=== PATIENT | male | born 1995 | race Caucasian/White ===

== ENCOUNTER 2024-07-18 11:37 | Emergency (ER) | payer OTHER, SELFPAY ==
[2024-07-18 11:38] VITALS: BP 221/107; PULSE 118; RESP 18; TEMP 36.7; O2SAT 98
[2024-07-18 11:40] VITALS: BMI 52.7
--- NOTE | 2024-07-18 11:56 | EDS_ITS ---
HPI <VENUS Ly - Last Filed: 07/18/24 14:20> History of Present Illness Chief Complaint: Abd Pain Narrative Narrative: 28-year-old male with PMH of HTN, GERD, DM2 who states last night he developed nausea, epigastric pain and diarrhea. He took his Prilosec before bed thinking it may have been GERD but it did not help. He did not take his other nighttime meds (blood pressure and metformin). He took Zofran ODT this morning and his nausea has resolved but he still has the upper abdominal pain and frequent nonbloody diarrhea. He was concerned because his fingerstick glucose was over 200. He denies smoking or drinking alcohol. No abdominal surgical history. PFSH <VENUS Ly - Last Filed: 07/18/24 14:20> [facility] Medical History (Updated 07/18/24 @ 12:58 by VENUS Ly) HTN (hypertension) Diabetes Lumbar strain Home Medications ?Medication ?Instructions ?Recorded ?Last Taken ?Type amlodipine 5 mg tablet (Norvasc) 5 mg PO QDAY 04/29/24 Unknown History cyclobenzaprine 10 mg tablet 10 mg PO HS PRN muscle sp asm #14 04/29/24 Unknown Rx tabs fexofenadine 60 mg capsule 60 mg PO BID 04/29/24 Unkno wn History folic acid 1 mg tablet 1 mg PO QDAY 04/29/24 Unknow n History ibuprofen 600 mg tablet 600 mg PO Q6H #40 tabs 04/29 Unknown Rx levothyroxine 50 mcg capsule 50 mcg PO QDAY 04/29/24 U nknown History lisinopril 10 mg tablet 10 mg PO QDAY 04/29/24 Unkno wn History mecobalamin (vitamin B12) 500 mcg mcg PO 04/29/24 Unkn own History chewable tablet metformin 500 mg tablet 500 mg PO QDAY 04/29/24 Unkn own History omeprazole magnesium 20 mg 20 mg PO QDAY 04/29/24 Unkn own History tablet,delayed release (Prilosec OTC) ondansetron 4 mg disintegrating 4 mg PO Q8H PRN PRN Na usea #12 tabs 07/18/24 Unknown Rx tablet Allergy/AdvReac Type Severity Reaction Status Date / Time carbinoxamine (From [facility]) Allergy SOB Verified 07/18/24 11:38 chlorpheniramine (From Allergy SOB Verified 07/18/24 11:38 Cardec (phenylephrin-chlorphn)) codeine Allergy irritabilit Verified 07/18/24 11:38 y phenylephrine (From [facility]ec Allergy SOB Verified 07/18/24 11:38 (phenylephrin-chlorphn)) [facility] Allergy SOB Verified 07/18/24 11:38 Seasonal Allergies: Uncoded Allergy Other Verified 07/18/24 11:38 Social History Smoking Status: Never smoker ROS <VENUS Ly - Last Filed: 07/18/24 14:20> ROS ED ROS Narrative Constitutional: Negative for fever, chills, malaise. CVS: Negative for chest pain. Respiratory: Negative for shortness of breath. GI: Negative for abdominal pain, nausea, diarrhea. Negative for vomiting, melena, hematochezia. : Negative for dysuria, hematuria. EXAM <VENUS Ly - Last Filed: 07/18/24 14:20> Physical Exam Narrative Exam Narrative: CONST: Patient sitting in no acute distress. EYES: Normal inspection. NECK: Normal inspection. RESP: No respiratory distress, CTAB. CVS: Regular rate and rhythm, no murmur, no gallop. ABD: Soft obese abdomen with minimal midline epigastric tenderness, no guarding or rebound, nondistended. SKIN: Color normal, no rash, warm, dry, intact. EXTREMITIES: Normal appearance, no pedal edema. NEURO: Alert and answering questions appropriately. PSYCH: Normal affect. Const Vital Signs: 07/18/24 11:38 07/18/24 13:37 Temperature 98.1 F Temperature Source Oral Pulse Rate 118 H 99 Respiratory Rate 18 18 Blood Pressure 221/107 H 150/92 H Blood Pressure Mean 145 111 Pulse Ox 98 97 Oxygen Delivery Method Room Air <Dr. Steven Maradiaga DO - Last Filed: 07/18/24 13:08> Physical Exam Const Vital Signs: 07/18/24 11:38 07/18/24 13:37 Temperature 98.1 F Temperature Source Oral Pulse Rate 118 H 99 Respiratory Rate 18 18 Blood Pressure 221/107 H 150/92 H Blood Pressure Mean 145 111 Pulse Ox 98 97 Oxygen Delivery Method Room Air MDM <VENUS Ly - Last Filed: 07/18/24 14:20> [facility] Narrative Medical decision making narrative: Differential includes but not limited to viral illness, GERD, PUD, pancreatitis, DKA 28-year-old male signed nausea, epigastric pain, and diarrhea since last night. He appears well and nontoxic. BP 221/107, HR 118, otherwise normal vital signs. He takes his medication at night and did not take lisinopril or amlodipine last evening. Overall he is a benign exam with minimal epigastric tenderness. Labs show WBC of 12.4. Normal electrolytes. Glucose 174, CO2 20.9, anion gap 15. There is mild transaminitis with normal lipase. He took Zofran at home but nausea has resolved. I ordered IV fluids, Toradol, Pepcid and lisinopril and amlodipine. Patient feels better and his vital signs have improved. I prescribed Zofran and discussed symptomatic management at home for suspected viral enteritis. I discussed return precautions. He was discharged in stable condition. Lab Data Labs: Laboratory Results - last 24 hr 07/18/24 11:52 WBC 12.4 H RBC 5.63 Hgb 15.7 Hct 47.6 MCV 84.5 MCH 27.9 MCHC 33.0 RDW Std Deviation 40.2 RDW Coeff of Karl 13.1 Plt Count 385 MPV 9.2 Immature Gran % (Auto) 0.400 Neut % (Auto) 81.3 H Lymph % (Auto) 12.8 L [place] % (Auto) 4.5 Eos % (Auto) 0.6 Baso % (Auto) 0.4 Absolute Neuts (auto) 10.1 H Absolute Lymphs (auto) 1.59 Nucleated RBC % 0 Sodium 138 Potassium 3.9 Chloride 102 Carbon Dioxide 20.9 L Anion Gap 15 BUN 12 Creatinine 0.84 Est GFR (MDRD) Non-Af 122 BUN/Creatinine Ratio 13.7 Glucose 174 H Calcium 9.5 Total Bilirubin 0.56 AST 71 H ALT 119 H Alkaline Phosphatase 85 Total Protein 8.3 Albumin 4.6 Globulin 3.7 Albumin/Globulin Ratio 1.3 Lipase 28 <Dr. Steven Maradiaga DO - Last Filed: 07/18/24 13:08> [facility] History & Record Review Discussion w/independent historian: Patient Lab Data Attestation: I reviewed the patient's lab results. Labs: Laboratory Results - last 24 hr 07/18/24 11:52 WBC 12.4 H RBC 5.63 Hgb 15.7 Hct 47.6 MCV 84.5 MCH 27.9 MCHC 33.0 RDW Std Deviation 40.2 RDW Coeff of Karl 13.1 Plt Count 385 MPV 9.2 Immature Gran % (Auto) 0.400 Neut % (Auto) 81.3 H Lymph % (Auto) 12.8 L [place] % (Auto) 4.5 Eos % (Auto) 0.6 Baso % (Auto) 0.4 Absolute Neuts (auto) 10.1 H Absolute Lymphs (auto) 1.59 Nucleated RBC % 0 Sodium 138 Potassium 3.9 Chloride 102 Carbon Dioxide 20.9 L Anion Gap 15 BUN 12 Creatinine 0.84 Est GFR (MDRD) Non-Af 122 BUN/Creatinine Ratio 13.7 Glucose 174 H Calcium 9.5 Total Bilirubin 0.56 AST 71 H ALT 119 H Alkaline Phosphatase 85 Total Protein 8.3 Albumin 4.6 Globulin 3.7 Albumin/Globulin Ratio 1.3 Lipase 28 Treatment and Re-Evaluation :: I have personally performed a face to face assessment of the patient and have reviewed the STEVENSON Note. I performed a substantive portion of the visit including all aspects of the following. My acevedo findings include: History is 28-year-old male presenting to the emergency room with vomiting diarrhea and elevated blood sugar. Patient is a diabetic. He took Zofran this morning which has helped his nausea. He notes foul-smelling diarrhea. He notes that he is due for his blood pressure medication. Notes his blood sugar was 192 and then 202 this morning. Exam is afebrile slightly tachycardic and hypertensive. Abdominal exam shows normal active bowel sounds. Nonsurgical abdomen. Mild tenderness to palpation particularly in the epigastrium left upper quadrant. Medical Decison Making basic blood work was obtained. Patient received IV fluids as well as his blood pressure medication and Pepcid. White count is nonspecifically elevated 12.4. Normal lipase. ALT of 119 AST of 71 normal bilirubin. Glucose 174. I believe the patient can be discharged home. Likely has a viral gastroenteritis. Discharge Plan Triage Chief Complaint: Abd Pain ED Midlevel Provider: Cary Naik ED Provider: Steven Maradiaga Dx/Rx/DC Orders Clinical Impression: Diarrhea, Acute viral syndrome, Abdominal pain, epigastric Instructions: ED Diarrhea, Unknown Cause, ED Diet Vomiting Diarrhea Prescriptions: New ondansetron 4 mg tablet,disintegrating 4 mg PO Q8H PRN PRN (Reason: Nausea) Qty: 12 0RF No Action amlodipine [Norvasc] 5 mg tablet 5 mg PO QDAY Rx Instructions: Unsure of dose lisinopril 10 mg tablet 10 mg PO QDAY Rx Instructions: Unsure of dose fexofenadine 60 mg capsule 60 mg PO BID Rx Instructions: Unsure of dose omeprazole magnesium [Prilosec OTC] 20 mg tablet,delayed release (DR/EC) 20 mg PO QDAY Rx Instructions: Unsure of dose metformin 500 mg tablet 500 mg PO QDAY Rx Instructions: Unsure of dose levothyroxine 50 mcg capsule 50 mcg PO QDAY Rx Instructions: Unsure of dose folic acid 1 mg tablet 1 mg PO QDAY Rx Instructions: Unsure of dose mecobalamin (vitamin B12) 500 mcg tablet,chewable PO Rx Instructions: Unsure of dose ibuprofen 600 mg tablet 600 mg PO Q6H Qty: 40 0RF cyclobenzaprine 10 mg tablet 10 mg PO HS PRN (Reason: muscle spasm) Qty: 14 0RF Stand Alone Forms: ED Work / School Excuse Primary Care Provider: Analilia Gongora Referrals: Analilia Gongora, DO [Primary Care Provider] - Activity Restrictions/Additional Instructions: Plenty clear fluids and Gatorade etc. Use Zofran as needed for nausea and vomiting. If your symptoms worsen and you cannot keep down your medications or you develop worsening abdominal pain or blood in your diarrhea please come back to the emergency room for reevaluation. Print Language: Welsh Disposition Disposition: Home, Self Care Discharge Date/Time: 07/18/24 14:05
[2024-07-18 12:11] LABS: Absolute Lymphocyte Count 1.59 X10^3/uL (0.83-4.51); Absolute Neutrophil Count 10.1 X10^3/uL (2.0-7.7); Basophil# 0.05 X10^3/uL; Basophil% 0.4 % (0-1); Eosinophil# 0.08 X10^3/uL; Eosinophils% 0.6 % (0-5); Hematocrit 47.6 % (40-54); Hemoglobin 15.7 g/dL (13.0-16.5); Lymphocyte # 1.59 X10^3/ul (0.83-4.51); Lymphocyte % 12.8 % (19-41); Mean Corpuscular Hgb 27.9 pg (27.0-32.0); Mean Corpuscular Volume 84.5 fL (80-94); Mean Platelet Vol. 9.2 fl (6.2-12.0); Monocyte# 0.56 X10^3/uL; Monocyte% 4.5 % (0-10); NRBC Flagged by Analyzer 0 % (0-5); Neutrophil # 10.05 X10^3/uL (2.7-7.7); Neutrophil % 81.3 % (47-70); Platelet Count 385 K/mm3 (150-450); RBC Distribution Width CV 13.1 % (11.6-14.6); RBC Distribution Width SD 40.2 fl (35.1-43.9); Red Blood Count 5.63 M/mm3 (4.6-6.2); White Blood Count 12.4 K/mm3 (4.4-11.0)
[2024-07-18 12:33] LABS: ALB/GLOB Ratio 1.3 RATIO (0.9-2.4); AST(SGOT) 71 U/L (<=37); Alanine Aminotransfer ALT/SGPT 119 U/L (<=46); Albumin, Serum 4.6 g/dL (3.5-5.0); Alkaline Phosphatase 85 U/L (40-129); Anion Gap 15 (5-15); BUN 12 mg/dL (4-19); BUN/Creat Ratio 13.7 RATIO (10-20); Calcium,Total 9.5 mg/dL (7.6-11.0); Carbon Dioxide 20.9 mmol/L (21.0-32.0); Chloride 102 mmol/L (98-108); Creatinine, Serum 0.84 mg/dL (0.70-1.20); EST Glomerular Filtration Rate 122 (>60); Globulin 3.7 g/dL (2.2-4.2); Glucose 174 mg/dL (70-99); Lipase 28 U/L (13-75); Potassium 3.9 mmol/L (3.3-5.1); Protein, Total 8.3 g/dL (5.9-8.4); Sodium Level 138 mmol/L (133-145); Total Bilirubin 0.56 mg/dL (0.00-1.30)
[2024-07-18] MEDS: Lisinopril 20 MG Tablet PO (12:35)
[2024-07-18] MEDS: Ketorolac 15 MG/ML Vial IV (12:35)
[2024-07-18] MEDS: Famotidine 200 MG/20 ML MDV 20 MG in 0.9% Normal Saline (Pres. free 8 ML 300 MG IV (12:35)
[2024-07-18] MEDS: amLODIPine 10 MG Tablet PO (12:35)
[2024-07-18] MEDS: 0.9% Normal Saline (1000mL) 1,000 ML 999 ML IV (12:35)
[2024-07-18 13:37] VITALS: BP 150/92; PULSE 99; RESP 18; O2SAT 97
== END 2024-07-18 14:05 | disposition home or self-care (01) ==
PROVIDERS: Physician Assistant; Emergency Provider Emergency Medicine; PCP Family Medicine; Visit Provider Emergency Medicine
DX: R19.7 Diarrhea, unspecified (principal); E11.9 Type 2 diabetes mellitus without complications; B34.9 Viral infection, unspecified; I10 Essential (primary) hypertension; R10.13 Epigastric pain; K21.9 Gastro-esophageal reflux disease without esophagitis
CPT/HCPCS: 96361; 96374; 99283

== ENCOUNTER 2024-07-22 10:41 | Emergency (ER) | payer OTHER, SELFPAY ==
[2024-07-22 10:42] VITALS: BP 181/97; PULSE 108; RESP 18; TEMP 36.3; O2SAT 100; BMI 52.6
--- NOTE | 2024-07-22 11:18 | EX.ED.DYSGE1 ---
HPI <CLAUDIA Alva - Last Filed: 07/22/24 13:34> History of Present Illness Chief Complaint: Complaint Narrative Narrative: Patient is a 28-year-old male with history obesity, hypertension hyperlipidemia, diabetes who presents the emerged part for blood in urine. Patient was seen here 4 to 5 days ago for epigastric pain, nausea vomiting diarrhea. Patient states that the symptoms have improved. However he states that when he is urinating, he is dribbling blood afterward. He does have history of UTIs. Patient is not concerned for any STI, his last sexual encounter was greater than 5 months ago. Patient denies any back pain, fever or chills. <Dr. Steven Maradiaga DO - Last Filed: 07/22/24 13:39> Narrative Narrative: Patient is a 28-year-old male with history obesity, hypertension hyperlipidemia, diabetes who presents to the emergency department for blood in urine. Patient was seen here 4 to 5 days ago for epigastric pain, nausea vomiting diarrhea. Patient states that the symptoms have improved. However he states that when he is urinating, he is dribbling blood afterward. He does have history of UTIs. Patient is not concerned for any STI, his last sexual encounter was greater than 5 months ago. Patient denies any back pain, fever or chills. PFSH <CLAUDIA Alva - Last Filed: 07/22/24 13:34> [facility] Medical History (Updated 07/22/24 @ 13:33 by CLAUDIA Alva) HTN (hypertension) Diabetes Lumbar strain Home Medications ?Medication ?Instructions ?Recorded ?Last Taken ?Type amlodipine 5 mg tablet (Norvasc) 5 mg PO QDAY 04/29/24 Unknown History cyclobenzaprine 10 mg tablet 10 mg PO HS PRN muscle spasm #14 04/29/24 Unknown Rx tabs fexofenadine 60 mg capsule 60 mg PO BID 04/29/24 Unknown History folic acid 1 mg tablet 1 mg PO QDAY 04/29/24 Unknown History ibuprofen 600 mg tablet 600 mg PO Q6H #40 tabs 04/29/24 Unknown Rx levothyroxine 50 mcg capsule 50 mcg PO QDAY 04/29/24 Unknown History lisinopril 10 mg tablet 10 mg PO QDAY 04/29/24 Unknown History mecobalamin (vitamin B12) 500 mcg mcg PO 04/29/24 Unknown History chewable tablet metformin 500 mg tablet 500 mg PO QDAY 04/29/24 Unknown History omeprazole magnesium 20 mg 20 mg PO QDAY 04/29/24 Unknown History tablet,delayed release (Prilosec OTC) ondansetron 4 mg disintegrating 4 mg PO Q8H PRN PRN Nausea #12 tabs 07/18/24 Unknown Rx tablet cefdinir 300 mg capsule 300 mg PO BID #14 caps 07/22/24 Unknown Rx Allergy/AdvReac Type Severity Reaction Status Date / Time carbinoxamine (From [facility]) Allergy SOB Verified 07/22/24 10:43 chlorpheniramine (From Allergy SOB Verified 07/22/24 10:43 Cardec (phenylephrin-chlorphn)) codeine Allergy irritabilit Verified 07/22/24 10:43 y phenylephrine (From [facility] Allergy SOB Verified 07/22/24 10:43 (phenylephrin-chlorphn)) pseudoephedrine (From [facility]) Allergy SOB Verified 07/22/24 10:43 Seasonal Allergies: Uncoded Allergy Other Verified 07/22/24 10:43 Social History Smoking Status: Never smoker ROS <CLAUDIA Alva - Last Filed: 07/22/24 13:34> ROS ED ROS Narrative Constitutional: Negative for fever, chills, weight loss, weakness Eyes: Negative for vision loss, vision change, double vision ENT: Negative for any sore throat, ear pain, congestion Cardiovascular: Negative for any chest pain, tightness, palpitations Respiratory: Negative for any cough, sputum production, hemoptysis, dyspnea, dyspnea on exertion, orthopnea Gastrointestinal: Negative for any abdominal pain, nausea, vomiting, diarrhea, constipation, blood in stool, blood in vomit : Negative for any urinary frequency, dysuria, retention. Positive for blood in urine Muscle skeletal: Negative for any neck pain, back pain Neurological: Negative for any headache, syncope, dizziness Skin: Negative for any rashes, itching, abrasions, lacerations Psychiatric: Negative for any depression, anxiety, stress, suicidal ideation, homicidal ideation Hematologic: Negative for any excessive bruising, easy bleeding EXAM <CLAUDIA Alva - Last Filed: 07/22/24 13:34> Physical Exam Narrative Exam Narrative: Vital signs reviewed. HEET: Head normocephalic atraumatic, TMs clear bilaterally. Posterior pharynx is clear, moist mucous membranes. Nares clear bilaterally. Neck: Supple with no lymphadenopathy or tenderness. No signs of meningismus. Cardiac: Regular rate and rhythm no murmurs gallops or rubs, equal peripheral pulses bilaterally. Respiratory: Lungs clear to auscultation bilaterally. No chest tenderness. Abdomen: Soft, nontender, nondistended. No abdominal bruit or pulsatile masses. No hepatosplenomegaly Extremities: No peripheral edema, no signs of gross trauma or deformity. Active full range of motion of all extremities. Neuro: Cranial nerves II through XII intact, no focal neurological deficits. Skin: Clean dry and intact with no rash, purpura, petechiae, vesicles or pustules. Backs/flank: No CVA tenderness, no midline spinal tenderness, no deformity. Psych: Normal mood and affect. No SI, HI or acute psychosis. Const Vital Signs: 07/22/24 10:42 07/22/24 13:08 Temperature 97.4 F L Temperature Source Oral Pulse Rate 108 H 90 Respiratory Rate 18 18 Blood Pressure 181/97 H 157/98 H Blood Pressure Mean 125 117 Pulse Ox 100 98 Oxygen Delivery Method Room Air Room Air Positive well nourished, well developed and obese General Appearance ED: well developed Nutritional Appearance: obese <Dr. Steven Maradiaga DO - Last Filed: 07/22/24 13:39> Physical Exam Const Vital Signs: 07/22/24 10:42 07/22/24 13:08 Temperature 97.4 F L Temperature Source Oral Pulse Rate 108 H 90 Respiratory Rate 18 18 Blood Pressure 181/97 H 157/98 H Blood Pressure Mean 125 117 Pulse Ox 100 98 Oxygen Delivery Method Room Air Room Air MDM <CLAUDIA Alva - Last Filed: 07/22/24 13:34> [facility] Lab Data Labs: Laboratory Results - last 24 hr 07/22/24 11:38 WBC 6.6 RBC 5.43 Hgb 15.0 Hct 45.1 MCV 83.1 MCH 27.6 MCHC 33.3 RDW Std Deviation 39.1 RDW Coeff of Karl 13.0 Plt Count 275 MPV 8.9 Immature Gran % (Auto) 0.300 Neut % (Auto) 59.2 Lymph % (Auto) 31.2 [place] % (Auto) 7.6 Eos % (Auto) 1.1 Baso % (Auto) 0.6 Absolute Neuts (auto) 3.9 Absolute Lymphs (auto) 2.05 Nucleated RBC % 0 Sodium 140 Potassium 3.3 Chloride 102 Carbon Dioxide 22.5 Anion Gap 15 BUN 7 Creatinine 0.71 Estim Creat Clear Calc 249.00 Est GFR (MDRD) Non-Af 128 BUN/Creatinine Ratio 10.2 Glucose 145 H Calcium 9.0 Total Bilirubin 0.88 AST 106 H ALT 154 H Alkaline Phosphatase 80 Total Protein 8.0 Albumin 4.2 Globulin 3.9 Albumin/Globulin Ratio 1.1 Urine Color Yellow Urine Clarity Clear Urine pH 6.0 Ur Specific [place] 1.025 Urine Protein 30 H Urine Glucose (UA) Normal Urine Ketones 50 H Urine Occult Blood 250 H Urine Nitrite Negative Urine Bilirubin Negative Urine Urobilinogen Normal Ur Leukocyte Esterase 100 H Urine RBC 10-25 SEEN Urine WBC 0-5 SEEN Ur Squamous Epith Cells 0-5 SEEN Urine Bacteria 1+ Urine Mucus 1+ Radiography Diagnostic Testing: Clinical Impression(s) from Imaging Studies Abdomen/Pelvis CT 07/22/24 12:27 IMPRESSION: Diffuse fatty infiltration of the liver. Borderline splenomegaly. Reading Location: [place] [address] Treatment and Re-Evaluation :: Differential diagnosis includes however is not limited to: Obstructing uropathy, UTI, bladder abscess, bladder mass, cystitis, STI, dehydration Patient appears generally well, vital signs are stable, patient is nontoxic-appearing. Presenting to the emergency department complaints of blood in urine. Patient will receive basic laboratory values, urinalysis. Patient appears to be in no obvious distress. IV fluids given. Patient CBC was unremarkable, chemistries were unremarkable, AST 106 with an ALT of 154, slightly elevated. Patient CT scan shows a fatty liver as well as borderline splenomegaly. This could be related to the patient's body habitus, urinalysis showed 1+ bacteria 0-5 white blood cells, 10-25 red blood cells, 100 leukocytes this was sent for culture. Patient has no evidence of any obstructive or abscess pathology. Patient will follow-up outpatient. Placed on cefdinir twice a day for 7 days. Instructed return for any worsening symptoms. <Dr. Steven Maradiaga, DO - Last Filed: 07/22/24 13:39> MDM History & Record Review Discussion w/independent historian: Patient Lab Data Attestation: I reviewed the patient's lab results. Labs: Laboratory Results - last 24 hr 07/22/24 11:38 WBC 6.6 RBC 5.43 Hgb 15.0 Hct 45.1 MCV 83.1 MCH 27.6 MCHC 33.3 RDW Std Deviation 39.1 RDW Coeff of Karl 13.0 Plt Count 275 MPV 8.9 Immature Gran % (Auto) 0.300 Neut % (Auto) 59.2 Lymph % (Auto) 31.2 [place] % (Auto) 7.6 Eos % (Auto) 1.1 Baso % (Auto) 0.6 Absolute Neuts (auto) 3.9 Absolute Lymphs (auto) 2.05 Nucleated RBC % 0 Sodium 140 Potassium 3.3 Chloride 102 Carbon Dioxide 22.5 Anion Gap 15 BUN 7 Creatinine 0.71 Estim Creat Clear Calc 249.00 Est GFR (MDRD) Non-Af 128 BUN/Creatinine Ratio 10.2 Glucose 145 H Calcium 9.0 Total Bilirubin 0.88 AST 106 H ALT 154 H Alkaline Phosphatase 80 Total Protein 8.0 Albumin 4.2 Globulin 3.9 Albumin/Globulin Ratio 1.1 Urine Color Yellow Urine Clarity Clear Urine pH 6.0 Ur Specific [place] 1.025 Urine Protein 30 H Urine Glucose (UA) Normal Urine Ketones 50 H Urine Occult Blood 250 H Urine Nitrite Negative Urine Bilirubin Negative Urine Urobilinogen Normal Ur Leukocyte Esterase 100 H Urine RBC 10-25 SEEN Urine WBC 0-5 SEEN Ur Squamous Epith Cells 0-5 SEEN Urine Bacteria 1+ Urine Mucus 1+ Radiography Diagnostic Testing: Clinical Impression(s) from Imaging Studies Abdomen/Pelvis CT 07/22/24 12:27 IMPRESSION: Diffuse fatty infiltration of the liver. Borderline splenomegaly. Reading Location: [place] [address] Treatment and Re-Evaluation :: Differential diagnosis includes however is not limited to: Obstructing uropathy, UTI, bladder abscess, bladder mass, cystitis, STI, dehydration Patient appears generally well, vital signs are stable, patient is nontoxic-appearing. Presenting to the emergency department complaints of blood in urine. Patient will receive basic laboratory values, urinalysis. Patient appears to be in no obvious distress. IV fluids given. Patient CBC was unremarkable, chemistries were unremarkable, AST 106 with an ALT of 154, slightly elevated. Patient CT scan shows a fatty liver as well as borderline splenomegaly. This could be related to the patient's body habitus, urinalysis showed 1+ bacteria 0-5 white blood cells, 10-25 red blood cells, 100 leukocytes this was sent for culture. Patient has no evidence of any obstructive or abscess pathology. Patient will follow-up outpatient. Placed on cefdinir twice a day for 7 days. Instructed return for any worsening symptoms. I have personally performed a face to face assessment of the patient and have reviewed the STEVENSON Note. I performed a substantive portion of the visit including all aspects of the following. My acevedo findings include: History is 28-year-old male presenting with hematuria. Patient does feel like he is emptying his bladder. He was recently seen for gastroenteritis. He states that yesterday he had more blood than he did today. He denies fever. No history of kidney stones. No flank pain. Exam is obese male sitting comfortably in the bed. Exam is benign. Medical Decison Making. Urinalysis demonstrated 10-25 red blood cells 1+ bacteria. This will be sent for culture. CT abdomen pelvis demonstrates fatty liver but no obvious acute findings such as ureterolithiasis renal cyst. Renal inflammation. His white count is 6.6 hemoglobin of 15. He is a known diabetic with a glucose of 145. AST and ALT 106 and 154 respectively. Patient placed on oral antibiotics. Instructions to follow-up if not improving return to urgent Discharge Plan Triage Chief Complaint: Complaint ED Midlevel Provider: Simon Lepe ED Provider: Steven Maradiaga Dx/Rx/DC Orders Clinical Impression: Hematuria, Acute UTI Instructions: Hematuria: Possible Causes, UTIs Prescriptions: New cefdinir 300 mg capsule 300 mg PO BID Qty: 14 0RF No Action amlodipine [Norvasc] 5 mg tablet 5 mg PO QDAY Rx Instructions: Unsure of dose lisinopril 10 mg tablet 10 mg PO QDAY Rx Instructions: Unsure of dose fexofenadine 60 mg capsule 60 mg PO BID Rx Instructions: Unsure of dose omeprazole magnesium [Prilosec OTC] 20 mg tablet,delayed release (DR/EC) 20 mg PO QDAY Rx Instructions: Unsure of dose metformin 500 mg tablet 500 mg PO QDAY Rx Instructions: Unsure of dose levothyroxine 50 mcg capsule 50 mcg PO QDAY Rx Instructions: Unsure of dose folic acid 1 mg tablet 1 mg PO QDAY Rx Instructions: Unsure of dose mecobalamin (vitamin B12) 500 mcg tablet,chewable PO Rx Instructions: Unsure of dose ibuprofen 600 mg tablet 600 mg PO Q6H Qty: 40 0RF cyclobenzaprine 10 mg tablet 10 mg PO HS PRN (Reason: muscle spasm) Qty: 14 0RF ondansetron 4 mg tablet,disintegrating 4 mg PO Q8H PRN PRN (Reason: Nausea) Qty: 12 0RF Primary Care Provider: Analilia Gongora Referrals: Analilia Gongora, DO [Primary Care Provider] - Activity Restrictions/Additional Instructions: Take the antibiotics until finished. Print Language: Lao Disposition Disposition: Home, Self Care
[2024-07-22] MEDS: 0.9% Normal Saline (1000mL) 1,000 ML 999 ML IV (11:29)
[2024-07-22 11:53] LABS: Absolute Lymphocyte Count 2.05 X10^3/uL (0.83-4.51); Absolute Neutrophil Count 3.9 X10^3/uL (2.0-7.7); Basophil# 0.04 X10^3/uL; Basophil% 0.6 % (0-1); Eosinophil# 0.07 X10^3/uL; Eosinophils% 1.1 % (0-5); Hematocrit 45.1 % (40-54); Lymphocyte # 2.05 X10^3/ul (0.83-4.51); Lymphocyte % 31.2 % (19-41); Mean Corp Hgb Conc 33.3 g/dL (32-36); Mean Corpuscular Hgb 27.6 pg (27.0-32.0); Mean Corpuscular Volume 83.1 fL (80-94); Mean Platelet Vol. 8.9 fl (6.2-12.0); Monocyte% 7.6 % (0-10); NRBC Flagged by Analyzer 0 % (0-5); Neutrophil % 59.2 % (47-70); Platelet Count 275 K/mm3 (150-450); RBC Distribution Width SD 39.1 fl (35.1-43.9); Red Blood Count 5.43 M/mm3 (4.6-6.2); White Blood Count 6.6 K/mm3 (4.4-11.0)
[2024-07-22 11:54] LABS: Color, Urine Yellow (Yellow); Glucose, Dipstick Normal (Normal); Ketone-Dipstick 50 mg/dl (Negative); Leukocyte Esterase-Dipstick 100 /ul (Negative); Nitrite-Dipstick Negative (Negative); Occult Blood-Urine 250 /ul (Negative); Protein-Dipstick 30 mg/dl (Negative); Specific Gravity, Urine 1.025 (1.002-1.030); Urine Bilirubin Dipstick Negative (Negative); Urine Clarity Clear (Clear); Urine Urobilinogen Normal (Normal)
[2024-07-22 12:11] LABS: Red Blood Cells-Urine 10-25 SEEN /hpf (0-5)
[2024-07-22 12:12] LABS: Bacteria 1+ /hpf (None Seen); Mucous, Urine 1+ /hpf (<or=2+); Squamous Epithelial Cells - UA 0-5 SEEN /hpf (0-5); White Blood Cells 0-5 SEEN /hpf (0-5)
[2024-07-22 12:27] LABS: ALB/GLOB Ratio 1.1 RATIO (0.9-2.4); AST(SGOT) 106 U/L (<=37); Alanine Aminotransfer ALT/SGPT 154 U/L (<=46); Albumin, Serum 4.2 g/dL (3.5-5.0); Alkaline Phosphatase 80 U/L (40-129); Anion Gap 15 (5-15); BUN 7 mg/dL (4-19); BUN/Creat Ratio 10.2 RATIO (10-20); Carbon Dioxide 22.5 mmol/L (21.0-32.0); Chloride 102 mmol/L (98-108); Creatinine, Serum 0.71 mg/dL (0.70-1.20); EST Glomerular Filtration Rate 128 (>60); Globulin 3.9 g/dL (2.2-4.2); Glucose 145 mg/dL (70-99); Potassium 3.3 mmol/L (3.3-5.1); Sodium Level 140 mmol/L (133-145); Total Bilirubin 0.88 mg/dL (0.00-1.30)
--- NOTE | 2024-07-22 12:27 | CT_ITS ---
PROCEDURE: ABDOMEN/PELVIS W IV CONT ONLY 07/22/2024 REASON FOR EXAM: ABDOMINAL PAIN Hematuria. Diarrhea. TECHNIQUE: Abdomen and pelvis CT with intravenous contrast. Coronal and Sagittal reconstruction series were provided. PATIENT PREPARATION: Per protocol ORAL CONTRAST TYPE: None. CONTRAST: Isovue-300 VOLUME: 100 mL One or more dose reduction techniques were used (e.g., Automated exposure control, adjustment of the mA and/or kV according to patient size, use of iterative reconstruction technique. RADIATION DOSE SUMMARY: CTDlvol: 50 mGy DLP: 2200.25 mGycm COMPARISON: None FINDINGS: Lung bases: Unremarkable Liver: Diffuse fatty infiltration. Gallbladder: Unremarkable Spleen: Borderline splenomegaly. Pancreas: Normal size without evidence of mass surrounding inflammation or ductal dilation. Adrenals: Unremarkable Kidneys: Normal renal sizes. No hydronephrosis. Bladder: Unremarkable. Bowel: No bowel obstruction. Appendix: Unremarkable Lymph nodes: Unremarkable Vasculature: The abdominal aorta and IVC are normal. Peritoneum / Retroperitoneum: Small retroperitoneal lymph nodes. Bones: Loss of the normal lumbar lordosis. CT/Abdomen/Pelvis W IV Cont ONLY IMPRESSION: Diffuse fatty infiltration of the liver. Borderline splenomegaly. Reading Location: [place] [id number]
[2024-07-22 13:08] VITALS: BP 157/98; PULSE 90; RESP 18; O2SAT 98
[2024-07-22] MEDS: Cefdinir 300 MG Capsule PO (13:45)
[2024-07-22 13:50] VITALS: BP 157/98; PULSE 90; RESP 18; TEMP 36.3; O2SAT 98
== END 2024-07-22 14:01 | disposition home or self-care (01) ==
PROVIDERS: Nurse Practitioner; Emergency Provider Emergency Medicine; PCP Family Medicine; Visit Provider Emergency Medicine
DX: N39.0 Urinary tract infection, site not specified (principal); E11.9 Type 2 diabetes mellitus without complications; R31.9 Hematuria, unspecified; E66.9 Obesity, unspecified; I10 Essential (primary) hypertension; E78.5 Hyperlipidemia, unspecified
CPT/HCPCS: 74177; 80053; 81001; 85025; 87086; 96360; 96361; 99283; Q9967; A4216

== ENCOUNTER 2024-11-27 12:47 | Inpatient (IN) | payer OTHER, SELFPAY ==
[2024-11-27 12:50] VITALS: BP 159/102; PULSE 91; RESP 19; TEMP 36.6; O2SAT 99
--- NOTE | 2024-11-27 16:03 | ED.VIS.BACK ---
HPI <VENUS Keith - Last Filed: 11/27/24 20:06> History of Present Illness Chief Complaint: Back Narrative Narrative: Patient presenting today with right low back pain that radiates down the posterior aspect of his right lower extremity he has had since yesterday. He reports that he has had sciatica in the past, his last episode being a few months ago. He was treated with NSAIDs and Flexeril which relieved his previous flare. He denies any injury to his back, fevers, chills, history of IV drug use, bowel/bladder incontinence, urinary retention, and saddle anesthesia. He has a history of obesity, T2DM, hypothyroidism, and HTN. He spends most of his day sitting and sits while at work. He denies any recent exercise, exertion, or activity that could have flared his back pain. [facility] <VENUS Keith - Last Filed: 11/27/24 20:06> [facility] Medical History Second hand tobacco smoke exposure Morbid obesity GERD (gastroesophageal reflux disease) Allergic rhinitis Hypothyroidism Diabetes mellitus, type 2 HTN (hypertension) Home Medications ?Medication ?Instructions ?Recorded ?Last Taken ?Type fexofenadine 60 mg capsule 90 mg PO Q24H 04/29/24 Unknown History folic acid 1 mg tablet 1 mg PO QDAY 04/29/24 Unknown History mecobalamin (vitamin B12) 500 mcg 2,000 mcg PO DAILY 04/29/24 Unknown History chewable tablet amlodipine 10 mg tablet 10 mg PO DAILY 11/27/24 Unknown History echinacea 380 mg capsule 760 mg PO DAILY 11/27/24 Unknown History levothyroxine 50 mcg tablet 50 mcg PO DAILY 11/27/24 Unknown History lisinopril 20 mg tablet 20 mg PO DAILY 11/27/24 Unknown History metformin 500 mg tablet,extended 500 mg PO DAILY 11/27/24 Unknown History release 24 hr omeprazole 40 mg capsule,delayed 40 mg PO DAILY 11/27/24 Unknown History release Allergy/AdvReac Type Severity Reaction Status Date / Time carbinoxamine (From [facility]) Allergy SOB Verified 11/27/24 15:40 chlorpheniramine (From Allergy SOB Verified 11/27/24 15:40 Cardec (phenylephrin-chlorphn)) codeine Allergy irritabilit Verified 11/27/24 15:40 y phenylephrine (From [facility] Allergy SOB Verified 11/27/24 15:40 (phenylephrin-chlorphn)) pseudoephedrine (From [facility]) Allergy SOB Verified 11/27/24 15:40 Seasonal Allergies: Uncoded Allergy Other Verified 11/27/24 15:40 Family History (Updated 11/27/24 @ 21:[address] Anastasiia Chapman MD) Mother JANN (obstructive sleep apnea) Heart disease Hypertension CAD (coronary artery disease) Diabetes Father JANN (obstructive sleep apnea) Hypertension Diabetes Surgical History S/P tonsillectomy and adenoidectomy Status post myringotomy with tube placement of both ears Social History (Updated 11/27/24 @ 21:[address] Anastasiia Chapman MD) household members: none Smoking Status: Never smoker alcohol intake: current alcohol intake frequency: holidays/special occasions only substance use type: does not use ROS <VENUS Keith - Last Filed: 11/27/24 20:06> ROS ED Constitutional Constitutional ED: Denies chills or fever(s) Cardiovascular Cardiovascular: Denies chest pain Respiratory/Chest Respiratory/Chest: Denies dyspnea Gastrointestinal Gastrointestinal: Denies abdominal pain, nausea or vomiting Genitourinary Genitourinary ED: Denies dysuria, hematuria or urinary urgency Musculoskeletal Musculoskeletal: Reports back pain Integumentary Denies rash Neurologic Neurologic: Denies weakness EXAM <VENUS Keith - Last Filed: 11/27/24 20:06> Physical Exam Const Vital Signs: 11/27/24 12:50 11/27/24 17:10 11/27/24 20:02 Temperature 98 F 98 F Temperature Source Temporal Pulse Rate 91 82 82 Respiratory Rate 19 H 16 16 Blood Pressure 159/102 H 170/91 H 170/91 H Blood Pressure Mean 121 117 117 Pulse Ox 99 99 99 Oxygen Delivery Method Room Air 11/27/24 21:00 Temperature Temperature Source Pulse Rate 77 Respiratory Rate 18 Blood Pressure Blood Pressure Mean Pulse Ox 97 Oxygen Delivery Method Positive well nourished, well developed and no apparent distress General Appearance ED: well developed HEENT Reports normocephalic and head/scalp atraumatic Mouth ED: Yes moist mucous membranes normal Eyes PERRL and EOMs intact bilaterally Neck full ROM and supple Chest Wall inspection of chest normal Resp normal respiratory effort and clear to auscultation bilaterally Cardio regular rate and regular rhythm GI soft to palpation, non-tender, non-distended and no masses Back/Spine normal ROM and normal to inspection Back/Spine Narrative: No midline tenderness to the cervical, thoracic, or lumbar spine. Minimal tenderness to the right lumbar paraspinal muscles, no overlying bruising or rash. Extremity normal to inspection and full ROM Extremity Narrative: Strength and sensation 5 out of 5 bilateral lower extremities Right DP pulse 2+ Neuro oriented x3, CN's II-XII intact bilaterally, moves all extremities, no focal motor deficits and no sensory deficits noted Sensorium / Orientation: awake and alert Psych mental status grossly normal and thought process normal Skin no rashes or lesions noted and no wounds <Dr. Antolin Floyd DO - Last Filed: 11/27/24 21:12> Physical Exam Const Vital Signs: 11/27/24 12:50 11/27/24 17:10 11/27/24 20:02 Temperature 98 F 98 F Temperature Source Temporal Pulse Rate 91 82 82 Respiratory Rate 19 H 16 16 Blood Pressure 159/102 H 170/91 H 170/91 H Blood Pressure Mean 121 117 117 Pulse Ox 99 99 99 Oxygen Delivery Method Room Air 11/27/24 21:00 Temperature Temperature Source Pulse Rate 77 Respiratory Rate 18 Blood Pressure Blood Pressure Mean Pulse Ox 97 Oxygen Delivery Method [facility] <VENUS Keith - Last Filed: 11/27/24 20:06> [facility] Narrative Medical decision making narrative: Patient presenting today with right lower back pain that radiates down posterior aspect of his right leg that has been ongoing since yesterday. He does not have any symptoms of cauda equina syndrome, low suspicion for spinal abscess. He denies any injury to his back. I do not feel that emergent imaging is indicated at this time. He has had similar symptoms in the past that were relieved by NSAIDs and muscle relaxers. He has not tried taking anything for his pain today. He was given Toradol and a [place]. On reexamination he reports improvement of his pain but he is still unable to get up out of the wheelchair and ambulate due to pain, he was send given IM morphine and again reports that his pain is improved but will not ambulate out of the chair. Given this, labs and a CT scan of the lumbar spine will be obtained. His CBC and BMP are largely unremarkable, CT scan of the lumbar spine reveals degenerative changes and narrowing of the spinal canal, predominantly at L5-S1 with severe left and right foraminal stenosis and severe narrowing of the thecal sac. On reexamination patient is not able to ambulate out of the bed. He reports that his pain is okay at rest but he feels too stiff to ambulate. Given this I will speak with hospitalist regarding admission, spoke with Dr. Chapman, patient admitted in stable condition. I did speak with Dr. Hernández, he recommends obtaining a lumbar MRI which will be obtained as an inpatient. Lab Data Attestation: I reviewed the patient's lab results. Labs: Laboratory Results - last 24 hr 11/27/24 18:04 WBC 9.0 RBC 5.61 Hgb 15.3 Hct 46.5 MCV 82.9 MCH 27.3 MCHC 32.9 RDW Std Deviation 39.2 RDW Coeff of Karl 13.2 Plt Count 363 MPV 8.9 Immature Gran % (Auto) 0.200 Neut % (Auto) 63.4 Lymph % (Auto) 30.0 Stafford % (Auto) 4.7 Eos % (Auto) 1.0 Baso % (Auto) 0.7 Absolute Neuts (auto) 5.7 Absolute Lymphs (auto) 2.69 Nucleated RBC % 0 Sodium 139 Potassium 4.3 Chloride 101 Carbon Dioxide 22.3 Anion Gap 16 H BUN 8 Creatinine 0.69 L Est GFR (MDRD) Non-Af 128 BUN/Creatinine Ratio 11.6 Glucose 117 H Calcium 9.5 Radiography Diagnostic Testing: Clinical Impression(s) from Imaging Studies Lumbar Spine CT 11/27/24 17:51 IMPRESSION: Degenerate changes on background of 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 The remainder levels show moderate canal stenoses. Reading Location: [id number] <Dr. Antolin Floyd, DO - Last Filed: 11/27/24 21:12> [facility] Narrative Medical decision making narrative: Patient presenting today with right lower back pain that radiates down posterior aspect of his right leg that has been ongoing since yesterday. He does not have any symptoms of cauda equina syndrome, low suspicion for spinal abscess. He denies any injury to his back. I do not feel that emergent imaging is indicated at this time. He has had similar symptoms in the past that were relieved by NSAIDs and muscle relaxers. He has not tried taking anything for his pain today. He was given Toradol and a [place]. On reexamination he reports improvement of his pain but he is still unable to get up out of the wheelchair and ambulate due to pain, he was send given IM morphine and again reports that his pain is improved but will not ambulate out of the chair. Given this, labs and a CT scan of the lumbar spine will be obtained. His CBC and BMP are largely unremarkable, CT scan of the lumbar spine reveals degenerative changes and narrowing of the spinal canal, predominantly at L5-S1 with severe left and right foraminal stenosis and severe narrowing of the thecal sac. On reexamination patient is not able to ambulate out of the bed. He reports that his pain is okay at rest but he feels too stiff to ambulate. Given this I will speak with hospitalist regarding admission, spoke with Dr. Chapman, patient admitted in stable condition. I did speak with Dr. Hernández, he recommends obtaining a lumbar MRI which will be obtained as an inpatient. ED attending note: I evaluated the patient in conjunction with the [facility]. I agree with his/her statements and above findings. I have personally performed a face to face assessment of the patient and have reviewed the [facility] Note. I performed a substantive portion of the visit including all aspects of the following. I personally saw the patient performed chart review, physical exam, reviewed labs, imaging (if obtained), and formulated a treatment and management plan. This note was generated with [employer] dictation software. It may contain incorrect words, spelling, and punctuation that were not noted in review of the chart prior to signing. Lab Data Labs: Laboratory Results - last 24 hr 11/27/24 18:04 WBC 9.0 RBC 5.61 Hgb 15.3 Hct 46.5 MCV 82.9 MCH 27.3 MCHC 32.9 RDW Std Deviation 39.2 RDW Coeff of Karl 13.2 Plt Count 363 MPV 8.9 Immature Gran % (Auto) 0.200 Neut % (Auto) 63.4 Lymph % (Auto) 30.0 Stafford % (Auto) 4.7 Eos % (Auto) 1.0 Baso % (Auto) 0.7 Absolute Neuts (auto) 5.7 Absolute Lymphs (auto) 2.69 Nucleated RBC % 0 Sodium 139 Potassium 4.3 Chloride 101 Carbon Dioxide 22.3 Anion Gap 16 H BUN 8 Creatinine 0.69 L Est GFR (MDRD) Non-Af 128 BUN/Creatinine Ratio 11.6 Glucose 117 H Calcium 9.5 Radiography Diagnostic Testing: Clinical Impression(s) from Imaging Studies Lumbar Spine CT 11/27/24 17:51 IMPRESSION: Degenerate changes on background of 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 The remainder levels show moderate canal stenoses. Reading Location: [facility] Discharge Plan Dx/Rx/DC Orders Clinical Impression: Intractable back pain, Lumbar stenosis, Inability to walk, Morbid obesity, History of diabetes mellitus, type II Disposition Disposition: Acute Care Hospital [facility]
[2024-11-27] MEDS: Ketorolac 30 MG/ML Syringe IM (16:06)
[2024-11-27] MEDS: HYDROcodone Bitartrate/Apap 5/325 Tablet PO (16:06)
[2024-11-27 17:10] VITALS: BP 170/91; PULSE 82; RESP 16; O2SAT 99
--- NOTE | 2024-11-27 17:51 | CT_ITS ---
PROCEDURE: SPINE LUMBAR WITHOUT CONTRAST 11/27/2024 REASON FOR EXAM: LOW BACK PAIN TECHNIQUE: SPINE LUMBAR WITHOUT CONTRAST Coronal and Sagittal reconstruction series were provided. One or more dose reduction techniques were used (e.g., Automated exposure control, adjustment of the mA and/or kV according to patient size, use of iterative reconstruction technique COMPARISON: None. RADIATION DOSE SUMMARY: CTDlvol: 50.66 mGy DLP: 2079.94 mGycm FINDINGS: Vertebrae: No acute bony abnormalities. Congenital narrowing of the pedicles. Alignment: Normal alignment. L1-2: Disc bulge. Moderate canal stenosis. No foramina stenosis. L2-3: Disc bulge. Moderate canal stenosis. No foramina stenosis. L3-4: Disc bulge. Mild bilateral foramina stenosis. Moderate canal stenosis. L4-5: Disc bulge. Mild bilateral foramina stenosis. Moderate canal stenosis. L5-S1: Disc bulge. Facet joint arthropathy. Severe left and moderate right foramina stenosis. Severe narrowing of the thecal sac. Sacrum: Unremarkable. No fractures. CT/Spine Lumbar without Contrast IMPRESSION: Degenerate changes on background of congenital narrowing of the spinal canal pr edominantly at L5-S1 where there is severe left and moderate right foramina stenosis from facet joint arthropathy and severe na rrowing of the thecal sac. The remainder levels show moderate canal stenoses. Reading Location: [facility]
[2024-11-27 18:10] LABS: Hematocrit 46.5 % (40-54); Hemoglobin 15.3 g/dL (13.0-16.5); Immature Granulocytes Count 0.020 X10^3/uL (0.0-0.0); Mean Corp Hgb Conc 32.9 g/dL (32-36); Mean Corpuscular Volume 82.9 fL (80-94); Mean Platelet Vol. 8.9 fl (6.2-12.0); NRBC Flagged by Analyzer 0 % (0-5); Platelet Count 363 K/mm3 (150-450); RBC Distribution Width CV 13.2 % (11.6-14.6); RBC Distribution Width SD 39.2 fl (35.1-43.9); Red Blood Count 5.61 M/mm3 (4.6-6.2); White Blood Count 9.0 K/mm3 (4.4-11.0)
[2024-11-27 18:39] LABS: Anion Gap 16 (5-15); BUN 8 mg/dL (4-19); BUN/Creat Ratio 11.6 RATIO (10-20); Calcium,Total 9.5 mg/dL (7.6-11.0); Carbon Dioxide 22.3 mmol/L (21.0-32.0); Chloride 101 mmol/L (98-108); Glucose 117 mg/dL (70-99); Potassium 4.3 mmol/L (3.3-5.1)
--- NOTE | 2024-11-27 19:44 | HP.PCM.HOS_ITS ---
HPI - General General Date of Admission: 11/27/24 Date of Service: 11/27/24 Chief Complaint: Lumbar back pain with RLE radiculopathy. HPI Narrative The patient is a 29 y/o M w/ PMHx: Obesity, HTN, Diabetes mellitus type II, Hypothyroidism, Allergic rhinitis, Hypothyroidism, GERD who presents to the [facility] ED on 11/27/2024 with history of right lumbar back pain with radiculopathy to the posterior aspect of the right lower extremity starting on the day prior to current presentation with history of previous sciatica with last episode approximately 2 to 3 months previous with self administration of NSAIDs and Flexeril which usually relieves his previous flares noting that he sits primarily most of his day at work with no recent alteration to his activities or increased exertion. He denies any history of bladder or bowel incontinence, urinary retention or saddle anesthesia. Patient notes that the pain is exacerbated by alteration to his position, activity. Patient upon arrival noted pain 8 out of 10 in severity and post-medication treatment in the ED reported pain down to 5 out of 10 in severity. Upon hospitalist evaluation patient currently reporting at rest pain 2-3 out of 6 in severity more aching to the lumbar spine. He denies any radicular pain currently. Workup in the ED included T98, heart rate 91, BP 159/102, respiratory rate 19, 99% on room air with most recent repeat vitals heart rate 82, BP 170/91, respiratory rate 16, 99% on room air, CBC with WC 9.0, he 115.3, platelet 363 without marked shift, BMP with anion gap 16, BUN/canaille 8/0.69, GFR 129, glucose 117, CT lumbar spine with degenerative changes with background of congenital narrowing of the spinal canal predominantly L5-S1 demonstrating a severe left and moderate right foraminal stenosis with facet joint arthropathy and severe narrowing of the thecal sac with the remaining levels demonstrating moderate canal stenoses. In the ED patient ministered hydrocodone 1 tablet p.o. x 1, Toradol 30 mg IM x 1, morphine 6 mg IM x 1. [facility] Medical History Second hand tobacco smoke exposure Morbid obesity GERD (gastroesophageal reflux disease) Allergic rhinitis Hypothyroidism Diabetes mellitus, type 2 HTN (hypertension) Home Medications ?Medication ?Instructions ?Recorded ?Last Taken ?Type fexofenadine 60 mg capsule 90 mg PO Q24H 04/29/24 Unkn own History folic acid 1 mg tablet 1 mg PO QDAY 04/29/24 Unknow n History mecobalamin (vitamin B12) 500 mcg 2,000 mcg PO DAILY 0 04/29/24 Unknown History chewable tablet amlodipine 10 mg tablet 10 mg PO DAILY 11/27/24 Unkn own History echinacea 380 mg capsule 760 mg PO DAILY 11/27/24 Unk nown History levothyroxine 50 mcg tablet 50 mcg PO DAILY 11/27/24 U nknown History lisinopril 20 mg tablet 20 mg PO DAILY 11/27/24 Unkn own History metformin 500 mg tablet,extended 500 mg PO DAILY 11/27 Unknown History release 24 hr omeprazole 40 mg capsule,delayed 40 mg PO DAILY Unknown History release Allergy/AdvReac Type Severity Reaction Status Date / Time carbinoxamine (From [facility]) Allergy SOB Verified 11/27/24 15:40 chlorpheniramine (From Allergy SOB Verified 11/27/24 15:40 Cardec (phenylephrin-chlorphn)) codeine Allergy irritabilit Verified 11/27/24 15:40 y phenylephrine (From [facility] Allergy SOB Verified 11/27/24 15:40 (phenylephrin-chlorphn)) pseudoephedrine (From [facility]) Allergy SOB Verified 11/27/24 15:40 Seasonal Allergies: Uncoded Allergy Other Verified 11/27/24 15:40 Family History (Updated 11/27/24 @ 21:[address] Anastasiia Chapman MD) Mother JANN (obstructive sleep apnea) Heart disease Hypertension CAD (coronary artery disease) Diabetes Father JANN (obstructive sleep apnea) Hypertension Diabetes Surgical History S/P tonsillectomy and adenoidectomy Status post myringotomy with tube placement of both ears Social History (Updated 11/27/24 @ 21:[address] Anastasiia Chapman MD) household members: none Smoking Status: Never smoker alcohol intake: current alcohol intake frequency: holidays/special occasions only substance use type: does not use ROS ROS Narrative Admission Review of Systems: CONSTITUTIONAL: No weight loss, fever, chills, + weakness or fatigue. HEENT: Eyes: No visual loss, blurred vision, double vision or yellow sclerae. Ears, Nose, Throat: No hearing loss, sneezing, congestion, runny nose or sore throat. SKIN: No rash or itching, lesions, wounds. CARDIOVASCULAR: No chest pain, chest pressure or chest discomfort, palpitations, edema, orthopnea, syncopal events. RESPIRATORY: No shortness of breath, cough or sputum, wheezing, hemoptysis. GASTROINTESTINAL: No anorexia, nausea, vomiting or diarrhea, abdominal pain, melena, BRBPR. GENITOURINARY: No dysuria, frequency, urgency or retention. NEUROLOGICAL: + Right lower extremity radiculopathy with lumbar back pain. No headache, dizziness, syncope, paralysis, ataxia, focal weakness, change in bowel or bladder control, seizure. MUSCULOSKELETAL: + muscle, back pain, joint pain or stiffness. HEMATOLOGIC: No anemia, bleeding or bruising. LYMPHATICS: No enlarged nodes. No history of splenectomy. PSYCHIATRIC: No history of depression or anxiety. ENDOCRINOLOGIC: No reports of sweating, cold or heat intolerance. No polyuria or polydipsia. ALLERGIES: + History of allergic rhinitis. Vital Signs Vital Signs Vital Signs: 11/27/24 12:50 11/27/24 17:10 Temperature 98 F Temperature Source Temporal Pulse Rate 91 82 Respiratory Rate 19 H 16 Blood Pressure 159/102 H 170/91 H Blood Pressure Mean 121 117 Pulse Ox 99 99 Oxygen Delivery Method Room Air Physical Exam Narrative Physical Examination: General: Awake, alert, oriented x 3 and cooperative, laying in the ED bed, mildly uncomfortable appearing, notes pain currently to the lumbar spine 2-3 out of 10 in severity, aching. Skin: Normal color, normal turgor, no icterus, no cyanosis except occasional stage ecchymoses. HEENT: AT/NC, EOMI, PERRLA, mildly dry MM, no carotid bruits, difficult to discern JVD given thickened neck. Lungs: Diminished, distant breath sounds likely secondary to habitus, normal effort, no appreciated rales, ronchi or wheezing. Heart: Regular rate and rhythm; no gallop, rub audible. Abdomen: Soft, morbidly obese, NTTP, distant BS, difficult to discern distention and HSM given habitus. Extremities: No cyanosis, no clubbing, bilateral pedal to distal heller edema, not markedly pitting, suspect chronic. Neurological: Patient awake, alert, oriented as noted, cognitive function intact; pupils equally reactive to light and accommodation, cranial nerves grossly normal, moving all 4 extremities, no focal deficits, strength severely globally decreased secondary to acute presentation, sensation intact. Psychiatric: Affect appears fatigued, mildly uncomfortable, no acute evidence of depressive or anxiety feelings. Results Lab / Micro Data 11/27/24 18:04 11/27/24 18:04 Labs: Laboratory Results - last 24 hr 11/27/24 18:04: WBC 9.0, RBC 5.61, Hgb 15.3, Hct 46.5, MCV 82.9, MCH 27.3, MCHC 32.9, RDW Std Deviation 39.2, RDW Coeff of Karl 13.2, Plt Count 363, MPV 8.9, Immature Gran % (Auto) 0.200, Neut % (Auto) 63.4, Lymph % (Auto) 30.0, Elbert % (Auto) 4.7, Eos % (Auto) 1.0, Baso % (Auto) 0.7, Absolute Neuts (auto) 5.7, Absolute Lymphs (auto) 2.69, Nucleated RBC % 0, Sodium 139, Potassium 4.3, Chloride 101, Carbon Dioxide 22.3, Anion Gap 16 H, BUN 8, Creatinine 0.69 L, Est GFR (MDRD) Non-Af 128, BUN/Creatinine Ratio 11.6, Glucose 117 H, Calcium 9.5 Imaging Radiology Impression Lumbar Spine CT 11/27/24 17:51 IMPRESSION: Degenerate changes on background of 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 The remainder levels show moderate canal stenoses. Reading Location: [facility] Assessment & Plan Assessment/Plan (1) Intractable back pain: PLAN: Plan The patient is a 29 y/o M w/ PMHx: Obesity, HTN, Diabetes mellitus type II, Hypothyroidism, Allergic rhinitis, Hypothyroidism, GERD who presents to the [facility] ED on 11/27/2024 with history of right lumbar back pain with radiculopathy to the posterior aspect of the right lower extremity starting on the day prior to current presentation with history of previous sciatica with last episode approximately 2 to 3 months previous with self administration of NSAIDs and Flexeril which usually relieves his previous flares noting that he sits primarily most of his day at work with no recent alteration to his activities or increased exertion. #1. 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 Will obtain additionally MRI of the lumbar spine per orthospine request. Will hold on steroid initiation pending orthospine evaluation. Will consult PT and OT for evaluation as well as Case management for discharge planning. #2. Diabetes mellitus type II: Hold oral home regimen, continue home insulin regimen, ADA diet, accu checks w/ ISS. #3. Hypertension: Continue home regimen including amlodipine and lisinopril, may need to adjust regimen however BP elevation in the ED may be secondary to primary pain, continue to monitor for alteration needs, PRN hydralazine. #4. Allergic rhinitis: Will continue patient home fexofenadine hydrochloride. #5. Hypothyroidism: Will continue patient on levothyroxine regimen. #6. GERD: Will continue patient on PPI. #7. DVT prophylaxis: SCDs, hold chemoprophylaxis pending orthospine evaluation. Charges/Coding Visit Charges Inpatient E&M: 92607 Init Hosp L3
[2024-11-27 20:02] VITALS: BP 170/91; PULSE 82; RESP 16; TEMP 36.6; O2SAT 99
[2024-11-27 21:00] VITALS: PULSE 77; RESP 18; O2SAT 97
--- OUTSIDE RECORDS SUMMARY | 2024-11-27 21:24 | XMS RPT_ITS | CCD ---
Author Organization [facility] Care Team Providers Care Orchard Manager Name Role Phone Chele Gongora DO Primary Care Provider Chele Gongora DO Unavailable Andrew Her Attending Provider Dr. Steven Maradiaga DO Emergency Provider [phone] Analilia Gongora DO Primary Care Provider Steven Maradiaga Attending Unavailable Analilia Gongora Primary Care Unavailable Steven Maradiaga Attending Unavailable Analilia Gongora Primary Care Unavailable Andrew Her Attending Unavailable George Smith DO Primary Care Provider [phone] CHELE GONGORA Admitting UnavailBENNY Bal Attending Unavailable CHELE GONGORA Referring UnavailCHELE Zuniga Primary Care UnavailGEORGE Marte Attending Unavailable GEORGE SMITH Primary Care Unavailable Allergies Allergy Classification Reported Allergen(s) Allergy Type Date of Onset Reaction(s) Facility (4 sources) Brompheniramine / Dextromethorphan / Pseudoephedrine; Translations: [BROMPHENIRAMINE-PSE UDOEPH-DM] Drug Allergy 06-17-19 25 Shortness Of Breath [facility] (4 sources) Brompheniramine / Pseudoephedrine; Translations: [BROMPHENIRAMINE-PSE UDOEPHEDRIN] Drug Allergy 06-17-19 25 Other (See Comments) [facility] (6 sources) Codeine; Translations: [CODEINE] Drug Allergy 06-17-19 Other (See Comments) [facility] (2 sources) carbinoxamine Drug Allergy 07-19-19 25 [facility] (2 sources) Chlorpheniramine Drug Allergy 07-19-19 [facility] (2 sources) Phenylephrine Drug Allergy 07-19-19 [facility] (2 sources) Pseudoephedrine Drug Allergy 07-19-19 [facility] (3 sources) Seasonal Allergies: Uncoded; Translations: [Seasonal Allergies: Uncoded] Allergy to substance 07-19-19 Other [facility] (1 source) carbinoxamine Drug Allergy 07-23-19 [facility] (1 source) Chlorpheniramine Drug Allergy 07-23-19 [facility] (1 source) Codeine Drug Allergy 07-23-19 [facility] (1 source) Phenylephrine Drug Allergy 07-23-19 [facility] (1 source) Pseudoephedrine Drug Allergy 07-23-19 [facility] Medications Current Medications Medication Drug Class(es) Dates Sig (Normalized) Sig (Original) amLODIPine 10 mg oral tablet (5 sources) Dihydropyridine Calcium Channel [place] Start: 05-11-2024 amLODIPine (NORVASC) 10 MG tablet daily . 05/11/2024 Active Start: 04-29-2024 take 1 tablet by kika th once daily Amlodipine (Norvasc) 5 mg tablet Active 5 mg PO daily April 29, 2024 1:00am Unsure of dose cefdinir 300 mg oral capsule (1 source) Cephalosporin Antibacterial Start: 07-22-2024 take 1 capsule by mouth twice daily Cefdinir 300 mg capsule Active 300 mg PO TWICE A DAY July 22, 2024 12:00am cyclobenzaprine hydrochloride 10 mg oral tablet (5 sources) Muscle Relaxant Start: 04-29-2024 cyclobenzaprine (FLEXERIL) 10 MG tablet 1 (one) tablet (10 mg total) as needed . 04/29/2024 Active ECHINACEA ORAL (3 sources) ECHINACEA ORAL T bridgett by mouth once daily . Active fexofenadine hydrochloride 60 mg oral tablet (5 sources) Histamine-1 Receptor Antagonist Start: 04-29-2024 take 1 capsule by mouth twice daily Fexofenadine 60 mg capsule Active 60 mg PO TWICE A DAY April 29, 2024 1:00am Unsure of dose take 1 tablet by mouth once samy y fexofenadine (TOBY) 180 MG tablet Take 1 (one) tablet (180 mg total) by mouth daily . Active folic acid 1 mg oral tablet (5 sources) Start: 04-29-2024 folic acid (FOLVITE) 1 MG tablet daily . 05/11/2024 Active ibuprofen 600 mg oral tablet (5 sources) Nonsteroidal Anti-inflammatory Drug Start: 04-29-2024 ibuprofen (ADVIL,MOTRIN) 600 MG tablet as needed . 04/29/2024 Active levothyroxine sodium 0.05 mg oral capsule (5 sources) l-Thyroxine Start: 04-29-2024 take 1 capsule by mouth once daily Levothyroxine 50 mcg capsule Active 50 ug PO daily April 29, 2024 1:00am Unsure of dose take 1 tablet by mouth once samy y levothyroxine (SYNTHROID, LEVOTHROID) 50 MCG tablet Take 1 (one) tablet (50 mcg total) by mouth once daily . Active lisinopril 20 mg oral tablet (5 sources) Angiotensin Converting Enzyme Inhibitor Start: 05-11-2024 lisinopriL (PRINIVIL,ZESTRIL) 20 MG tablet daily . 05/11/2024 Active Start: 04-29-2024 take 1 tablet by kika th once daily Lisinopril 10 mg tablet Active 10 mg PO daily April 29, 2024 1:00am Unsure of dose mecobalamin (2 sources) Start: 04-29-2024 Mecobalamin (V itamin B12) 500 mcg tablet,chewable Active ug PO April 29, 2024 1:00am Unsure of dose 24 hr metFORMIN hydrochloride 500 mg extended release oral tablet (9 sources) Biguanide Start: 11-18-2024 take 2 tablets by mouth once daily at breakfast metFORMIN (GLUCOPHAGE-XR) 500 MG 24 hr tablet Indications: Type 2 diabetes mellitus without complication, without long-term current use of insulin (HCC) Take 2 (two) tablets (1,000 mg total) by mouth daily with breakfast . 180 tablet 3 11/18/2024 Active Start: 11-17-2024 End: 11-18-2024 take 1 tablet by mouth once daily metFORMIN (FORTAMET) 1000 MG (OSM) 24 hr tablet Indications: Type 2 diabetes mellitus without complication, without long-term current use of insulin (HCC) Take 1 (one) tablet (1,000 mg total) by mouth daily . 30 tablet 1 11/17/2024 11/18/2024 Discontinued Start: 04-29-2024 take 1 tablet by kika th once daily Metformin 500 mg tablet Active 500 mg PO daily April 29, 2024 1:00am Unsure of dose End: 11-17-2024 take 1 tablet by mouth once daily at breakfast metFORMIN (FORTAMET) 500 MG (OSM) 24 hr tablet Take 1 (one) tablet (500 mg total) by mouth daily with breakfast . 11/17/2024 Discontinued (Reorder (Suppress CancelRx Message to Pharmacy)) multivitamin (THERAGRAN) per tablet (3 sources) take 1 tablet by mouth once daily multivitamin (THERAGRAN) per tablet Take 1 (one) tablet by mouth daily . Active omeprazole 40 mg delayed release oral capsule (5 sources) Proton Pump Inhibitor Start: omeprazole (PRILOSEC) 40 MG capsule daily . 05/11/2024 Active Start: 04-29-2024 take 1 tablet by kika th once daily Omeprazole Magnesium (Prilosec Otc) 20 mg tablet,delayed release (DR/EC) Active 20 mg PO daily April 29, 2024 1:00am Unsure of dose ondansetron 4 mg disintegrating oral tablet (2 sources) Serotonin-3 Receptor Antagonist Start: 07-18-2024 take 1 tablet by mouth every eight hours as needed for nausea Ondansetron 4 mg tablet,disintegrating Active 4 mg PO EVERY 8 HOURS NEEDED as needed for Nausea July 18, 2024 12:00am vitamin b12 2 mg extended release oral tablet (3 sources) Vitamin B12 take 1 tablet by mouth once daily cyanocobalamin 2000 MCG tablet Take 1 (one) tablet (2,000 mcg total) by mouth daily . Active Problems Active Problems Problem Classification Problem Date Documented Da te Episodic/Chronic Abdominal pain (3 sources) Epigastric pain; Translations: [Epigastric pain] Onset: 07-22-2024 07-18-2024 Episodic Diabetes mellitus without complication (8 sources) Type 2 diabetes mellitus; Translations: [Type 2 diabetes mellitus without complications] Onset: 11-17-2024 11-22-2024 Chronic Essential hypertension (4 sources) Essential hypertension; Translations: [Essential (primary) hypertension] Onset: 11-22-2024 11-22-2024 Chronic Genitourinary symptoms and ill-defined conditions (1 source) Blood in urine; Translations: [Hematuria, unspecified] 07-22-2024 Episodic Hemorrhoids (7 sources) Internal hemorrhoids; Translations: [Other hemorrhoids] Onset: 11-22-2024 06-08-2024 Episodic Nutritional deficiencies (4 sources) Cobalamin deficiency; Translations: [Deficiency of other specified B group vitamins] Onset: 11-17-2024 11-17-2024 Episodic Other gastrointestinal disorders (2 sources) Diarrhea; Translations: [Diarrhea, unspecified] 07-18-2024 Episodic Other male genital disorders (1 source) Disorder of male genital organs, unspecified; Translations: [Disorder of male genital organs, unspecified] Onset: 07-27-2024 Episodic Other nutritional; endocrine; and metabolic disorders (4 sources) Body mass index 40+ - severely obese; Translations: [Morbid (severe) obesity due to excess calories] Onset: 11-22-2024 11-22-2024 Chronic Other skin disorders (4 sources) Sebaceous cyst of skin; Translations: [Sebaceous cyst] Onset: 11-22-2024 11-22-2024 Episodic Unclassified (4 sources) Strain of lumbar region; Translations: [S39.012A - Strain of muscle, fascia and tendon of lower back, initial encounter] Unclassified (2 sources) Consult Onset: 06-16-2024 Urinary tract infections (1 source) Acute urinary tract infection; Translations: [Urinary tract infection, site not specified] 07-22-2024 Episodic Viral infection (2 sources) Acute viral disease; Translations: [Viral infection, unspecified] 07-18-2024 Episodic Past or Other Problems Problem Classification Problem Date Documented Da te Episodic/Chronic Mood disorders (4 sources) Mood disorders Onset: 11-17-2024 11-17-2024 Sprains and strains (5 sources) Low back strain; Translations: [Strain of muscle, fascia and tendon of lower back, initial encounter] Onset: 04-29-2024 04-29-2024 Episodic Results Test Name Value Interpretation Reference Range Facility HbA1c (Bld) [Mass fraction]O rdered By: Leigh Ann Roberts on 11-17-2024 Interpretation and review of laboratory results Abnormal [facility] - Hematology and Cell countsOrdered By: Leigh Ann Roberts on 11-17-2024 HbA1c (Bld) [Mass fraction] 7.3 % Abnormal - 5.6 % [facility] Urine Cultureon 07-24-2024 [facility] Culture exhibits no growth. Normal [facility] Comment on above: Performed By: #### M 100.2200 #### [facility] [address] [place], [place], [address] Abdomen/Pelvis W IV Cont ONL Yon 07-22-2024 Abdomen/Pelvis W IV Cont ONLY [facility] [address] [place], [place] [address] Abdomen/Pelvis W IV Cont ONLY MR#: [id number] Acct: [id number] Name: YURIY RICK Rep #: [id number] : 1995 M 28 From: Piter meneses MD PCP: Analilia Gongora DO Status: REG ER Study: Abdomen/Pelvis W IV Cont ONLY Date of Exam: Exam# [id number] Ordering Dr: Simon Lepe [employer]OW[employer]CH[employer]IC-C PROCEDURE: ABDOMEN/PELVIS W IV CONT ONLY 07/22/2024 REASON FOR EXAM: ABDOMINAL PAIN Hematuria. Diarrhea. TECHNIQUE: Abdomen and pelvis CT with intravenous contrast. Coronal and Sagittal reconstruction series were provided. PATIENT PREPARATION: Per protocol ORAL CONTRAST TYPE: None. CONTRAST: Isovue-300 VOLUME: 100 mL One or more dose reduction techniques were used (e.g., Automated exposure control, adjustment of the mA and/or kV according to patient size, use of iterative reconstruction technique. RADIATION DOSE SUMMARY: CTDlvol: 50 mGy DLP: 2200.25 mGycm COMPARISON: None FINDINGS: Lung bases: Unremarkable Liver: Diffuse fatty infiltration. Gallbladder: Unremarkable Spleen: Borderline splenomegaly. Pancreas: Normal size without evidence of mass surrounding inflammation or ductal dilation. Adrenals: Unremarkable Kidneys: Normal renal sizes. No hydronephrosis. Bladder: Unremarkable. Bowel: No bowel obstruction. Appendix: Unremarkable Lymph nodes: Unremarkable Vasculature: The abdominal aorta and IVC are normal. Peritoneum / Retroperitoneum: Small retroperitoneal lymph nodes. Bones: Loss of the normal lumbar lordosis. CT/Abdomen/Pelvis W IV Cont ONLY IMPRESSION: Diffuse fatty infiltration of the liver. Borderline splenomegaly. Reading Location: [place] [address] CC: CLAUDIA Lepe; Analilia Gongora DO [place] Burner Operator: Signed Normal [facility] Absolute neutrophil countOrd ered By: Simon Lepe on 07-22-2024 Neutrophils (Bld) [#/Vol] 3.9 10*3/uL 2.0-7.7 [facility] Anion gap in Serum or Plasma Ordered By: Simon Lepe on 07-22-2024 Anion gap [Moles/Vol] 15 mmol/L 5-15 [facility] BUN/creatinine ratioOrdered By: Simon Lepe on 07-22-2024 Urea nitrogen/Creatinine [Mass ratio] 10.2 mg/mg 10-20 [facility] Basophil percentageOrdered B y: Simon Lepe on 07-22-2024 Basophils/100 WBC (Bld) 0.6 % 0-1 [facility] Bilirubin Test strip Ql (U)O rdered By: Simon Lepe on 07-22-2024 Bilirubin Ql (U) Negative Negative [facility] Bilirubin, totalOrdered By: Simon Lepe on 07-22-2024 Bilirubin [Mass/Vol] 0.88 mg/dL 0.00-1.30 [facility] CBC W/Diff, Automatedon 04 Absolute Lymph 2.05 X10 3/uL Normal 0.83-4.51 [facility] Comment on above: Performed By: #### L 100.0100, L500.4050 #### [facility] [address] [place], [address] Absolute Neut 3.9 X10 3/uL Normal 2.0-7.7 [facility] Comment on above: Performed By: #### L 100.0100, L500.4050 #### [facility] [address] [place], [address] Basophils/100 WBC (Bld) 0.6 % Normal 0-1 [facility] Comment on above: Performed By: #### L 100.0100, L500.4050 #### [facility] [address] [place], [address] Eosinophils/100 WBC (Bld) 1.1 % Normal 0-5 [facility] Comment on above: Performed By: #### L 100.0100, L500.4050 #### [facility] [address] [place], [address] Erythrocyte distribution width (RBC) [Ratio] 13.0 % Normal 11.6-14.6 [facility] Comment on above: Performed By: #### L 100.0100, L500.4050 #### [facility] [address] [place], [address] Hematocrit (Bld) [Volume fraction] 45.1 % Normal 40-54 [facility] Comment on above: Performed By: #### L 100.0100, L500.4050 #### [facility] [address] [place], [address] Hemoglobin (Bld) [Mass/Vol] 15.0 g/dL Normal 13.0-16.5 [facility] Comment on above: Performed By: #### L 100.0100, L500.4050 #### [facility] [address] [place], [address] IG% 0.300 Normal 0.0-0.9 [facility] Comment on above: Result Comment: IG% - Immature Granulocytes (promyelocytes, myelocytes and metamyelocytes) > 1% indicates that a LEFT SHIFT is Present. Performed By: #### L 100.0100, L500.4050 #### [facility] [address] [place], [address] Lymphocytes/100 WBC (Bld) 31.2 % Normal 19-41 [facility] Comment on above: Performed By: #### L 100.0100, L500.4050 #### [facility] [address] [place], [address] MCH (RBC) [Entitic mass] 27.6 pg Normal 27.0-32.0 [facility] Comment on above: Performed By: #### L 100.0100, L500.4050 #### [facility] [address] [place], [address] MCHC (RBC) [Mass/Vol] 33.3 g/dL Normal 32-36 [facility] Comment on above: Performed By: #### L 100.0100, L500.4050 #### [facility] [address] [place], [address] MCV (RBC) [Entitic vol] 83.1 fL Normal 80-94 [facility] Comment on above: Performed By: #### L 100.0100, L500.4050 #### [facility] [address] [place], [address] Monocytes/100 WBC (Bld) 7.6 % Normal 0-10 [facility] Comment on above: Performed By: #### L 100.0100, L500.4050 #### [facility] [address] [place], [address] Neutrophils/100 WBC (Bld) 59.2 % Normal 47-70 [facility] Comment on above: Performed By: #### L 100.0100, L500.4050 #### [facility] [address] [place], [address] Nucleated RBC (Bld) [#/Vol] 0 10*3/uL Normal 0-5 [facility] Comment on above: Performed By: #### L 100.0100, L500.4050 #### [facility] [address] [place], [address] Platelet mean volume (Bld) [Entitic vol] 8.9 fL Normal 6.2-12.0 [facility] Comment on above: Performed By: #### L 100.0100, L500.4050 #### [facility] [address] [place], [address] Platelets (Bld) [#/Vol] 275 10*3/uL Normal 150-450 [facility] Comment on above: Performed By: #### L 100.0100, L500.4050 #### [facility] [address] [place], [address] RBC (Bld) [#/Vol] 5.43 10*6/uL Normal 4.6-6.2 [facility] Comment on above: Performed By: #### L 100.0100, L500.4050 #### [facility] [address] [place], [address] RDW SD 39.1 fl Normal 35.1-43.9 [facility] Comment on above: Performed By: #### L 100.0100, L500.4050 #### [facility] [address] [place], [address] WBC (Bld) [#/Vol] 6.6 10*3/uL Normal 4.4-11.0 [facility] Comment on above: Performed By: #### L 100.0100, L500.4050 #### [facility] [address] [place], [address] Carbon dioxide, total [Moles /volume] in Central venous bloodOrdered By: Simon Lepe on 07-22-2024 CO2 [Moles/Vol] 22.5 mmol/L 21.0-32.0 [facility] Chloride assayOrdered By: Wilmar Lepe on 07-22-2024 Chloride [Moles/Vol] 102 mmol/L 98-108 [facility] Comprehensive Metabolic Prof ilon 07-22-2024 Albumin [Mass/Vol] 4.2 g/dL Normal 3.5-5.0 [facility] Comment on above: Performed By: #### L 100.0100, L500.4050 #### [facility] [address] [place], [address] Albumin/Globulin [Mass ratio] 1.1 {ratio} Normal 0.9-2.4 [facility] Comment on above: Performed By: #### L 100.0100, L500.4050 #### [facility] [address] [place], [address] ALK PHOS 80 U/L Normal 40-129 [facility] Comment on above: Performed By: #### L 100.0100, L500.4050 #### [facility] [address] [place], [address] ALT [Catalytic activity/Vol] 154 U/L High <=46 [facility] Comment on above: Performed By: #### L 100.0100, L500.4050 #### [facility] [address] [place], [address] AST [Catalytic activity/Vol] 106 U/L High <=37 [facility] Comment on above: Performed By: #### L 100.0100, L500.4050 #### [facility] [address] [place], [address] Bilirubin [Mass/Vol] 0.88 mg/dL Normal 0.00-1.30 [facility] Comment on above: Performed By: #### L 100.0100, L500.4050 #### [facility] [address] [place], [address] BUN/CRE 10.2 RATIO Normal 10-20 [facility] Comment on above: Performed By: #### L 100.0100, L500.4050 #### [facility] [address] [place], [address] Calcium [Mass/Vol] 9.0 mg/dL Normal 7.6-11.0 [facility] Comment on above: Performed By: #### L 100.0100, L500.4050 #### [facility] [address] [place], [address] Chloride [Moles/Vol] 102 mmol/L Normal 98-108 [facility] Comment on above: Performed By: #### L 100.0100, L500.4050 #### [facility] [address] [place], [address] CO2 [Moles/Vol] 22.5 mmol/L Normal 21.0-32.0 [facility] Comment on above: Performed By: #### L 100.0100, L500.4050 #### [facility] [address] [place], [address] Creatinine [Mass/Vol] 0.71 mg/dL Normal 0.70-1.20 [facility] Comment on above: Performed By: #### L 100.0100, L500.4050 #### [facility] [address] [place], [address] ECRCL 249.00 ml/min Normal 50-250 [facility] Comment on above: Performed By: #### L 100.0100, L500.4050 #### [facility] [address] [place], [address] GAP 15 Normal 5-15 [facility] Comment on above: Performed By: #### L 100.0100, L500.4050 #### [facility] [address] [place], [address] GFR/1.73 sq M.predicted among non-blacks MDRD (S/P/Bld) [Vol rate/Area] 128 mL/min/{1.73_m2} Normal >60 [facility] Comment on above: Result Comment: mL/m in/1.73m2 CKD-EPI Creatinine Equation (2020) Performed By: #### L 100.0100, L500.4050 #### [facility] [address] [place], [address] Globulin (S) [Mass/Vol] 3.9 g/dL Normal 2.2-4.2 [facility] Comment on above: Performed By: #### L 100.0100, L500.4050 #### [facility] [address] [place], [address] Glucose [Mass/Vol] 145 mg/dL High 70-99 [facility] Comment on above: Performed By: #### L 100.0100, L500.4050 #### [facility] [address] [place], [address] Potassium [Moles/Vol] 3.3 mmol/L Normal 3.3-5.1 [facility] Comment on above: Performed By: #### L 100.0100, L500.4050 #### [facility] [address] [place], [address] Sodium [Moles/Vol] 140 mmol/L Normal 133-145 [facility] Comment on above: Performed By: #### L 100.0100, L500.4050 #### [facility] [address] [place], [address] T PROT 8.0 g/dL Normal 5.9-8.4 [facility] Comment on above: Performed By: #### L 100.0100, L500.4050 #### [facility] [address] [place], [address] Urea nitrogen [Mass/Vol] 7 mg/dL Normal 4-19 [facility] Comment on above: Performed By: #### L 100.0100, L500.4050 #### [facility] [address] [place], [address] Emergency Department Summary on 07-22-2024 Emergency Department Summary [facility] Medical Records Department [address] [place] [address] Emergency Department Summary 07/22/24 MR#: [id number] Acct: [id number] Name: YURIY RICK Rep #: [id number] : 1995 28 From: Steven Maradiaga DO PCP: Analilia Gongora DO Status:DEP ER Location: ED HPI History of Present Illness Chief Complaint: Complaint Narrative Narrative: Patient is a 28-year-old male with history obesity, hypertension hyperlipidemia, diabetes who presents the emerged part for blood in urine. Patient was seen here 4 to 5 days ago for epigastric pain, nausea vomiting diarrhea. Patient states that the symptoms have improved. However he states that when he is urinating, he is dribbling blood afterward. He does have history of UTIs. Patient is not concerned for any STI, his last sexual encounter was greater than 5 months ago. Patient denies any back pain, fever or chills. Narrative Narrative: Patient is a 28-year-old male with history obesity, hypertension hyperlipidemia, diabetes who presents to the emergency department for blood in urine. Patient was seen here 4 to 5 days ago for epigastric pain, nausea vomiting diarrhea. Patient states that the symptoms have improved. However he states that when he is urinating, he is dribbling blood afterward. He does have history of UTIs. Patient is not concerned for any STI, his last sexual encounter was greater than 5 months ago. Patient denies any back pain, fever or chills. [facility] Medical History (Updated 07/22/24 @ 13:33 by CLAUDIA Alva) HTN (hypertension) Diabetes Lumbar strain Home Medications ???Medication ???Instructions ???Recorded ???Last Taken ???Type amlodipine 5 mg tablet (Norvasc) 5 mg PO QDAY 04/29/24 Unknown Hist ory cyclobenzaprine 10 mg tablet 10 mg PO HS PRN muscle spasm #14 0 04/29/24 Unknown Rx tabs fexofenadine 60 mg capsule 60 mg PO BID 04/29/24 Unknown Hist ory folic acid 1 mg tablet 1 mg PO QDAY 04/29/24 Unknown Hist ory ibuprofen 600 mg tablet 600 mg PO Q6H #40 tabs 04/29/24 Un known Rx levothyroxine 50 mcg capsule 50 mcg PO QDAY 04/29/24 Unknown Hi story lisinopril 10 mg tablet 10 mg PO QDAY 04/29/24 Unknown His tory mecobalamin (vitamin B12) 500 mcg mcg PO 04/29/24 Unknown History chewable tablet metformin 500 mg tablet 500 mg PO QDAY 04/29/24 Unknown Hi story omeprazole magnesium 20 mg 20 mg PO QDAY 04/29/24 Unknown His tory tablet,delayed release (Prilosec OTC) ondansetron 4 mg disintegrating 4 mg PO Q8H PRN PRN Nausea #12 tab s 07/18/24 Unknown Rx tablet cefdinir 300 mg capsule 300 mg PO BID #14 caps 07/22/24 Un known Rx Allergy/AdvReac Type Severity Reaction Status Date / Time carbinoxamine (From [facility]) Allergy SOB Verified 07/22/24 10:43 chlorpheniramine (From Allergy SOB Verified 07/22/24 10:43 [facility] (phenylephrin-chlor phn)) codeine Allergy irritabilit Verified 07/22/24 10:43 y phenylephrine (From [facility] Allergy SOB Verified 07/22/24 10:43 (phenylephrin-chlor phn)) pseudoephedrine (From [facility]) Allergy SOB Verified 07/22/24 10:43 Seasonal Allergies: Uncoded Allergy Other Verified 07/22/24 10:43 Social History Smoking Status: Never smoker ROS ROS ED ROS Narrative Constitutional: Negative for fever, chills, weight loss, weakness Eyes: Negative for vision loss, vision change, double vision ENT: Negative for any sore throat, ear pain, congestion Cardiovascular: Negative for any chest pain, tightness, palpitations Respiratory: Negative for any cough, sputum production, hemoptysis, dyspnea, dyspnea on exertion, orthopnea Gastrointestinal: Negative for any abdominal pain, nausea, vomiting, diarrhea, constipation, blood in stool, blood in vomit : Negative for any urinary frequency, dysuria, retention. Positive for blood in urine Muscle skeletal: Negative for any neck pain, back pain Neurological: Negative for any headache, syncope, dizziness Skin: Negative for any rashes, itching, abrasions, lacerations Psychiatric: Negative for any depression, anxiety, stress, suicidal ideation, homicidal ideation Hematologic: Negative for any excessive bruising, easy bleeding EXAM Physical Exam Narrative Exam Narrative: Vital signs reviewed. HEET: Head normocephalic atraumatic, TMs clear bilaterally. Posterior pharynx is clear, moist mucous membranes. Nares clear bilaterally. Neck: Supple with no lymphadenopathy or tenderness. No signs of meningismus. Cardiac: Regular rate and rhythm no murmurs gallops or rubs, equal peripheral pulses bilaterally. Respiratory: Lungs clear to auscultation bilaterally. No chest tenderness. Abdomen: Soft, nontender, nondistended. No abdominal bruit or pulsatile masses. No hepatosplenomegaly Extremities: No peripheral edema, no signs of gross trauma (more content not included)... Normal [facility] Eosinophil percentageOrdered By: Simon Lepe on 07-22-2024 Eosinophils/100 WBC (Bld) 1.1 % 0-5 [facility] Epithelial cells.squamous LM Ql (Urine sed)Ordered By: Simon Lepe on 07-22-2024 Epithelial cells.squamous LM.HPF (Urine sed) [#/Area] 0 /[HPF] 0-5 [facility] Erythrocyte distribution wid th (RBC) [Ratio]Ordered By: Simon Lepe on 07-22-2024 Erythrocyte distribution width (RBC) [Entitic vol] 39.1 fL 35.1-43.9 [facility] Erythrocyte distribution wid th ratioOrdered By: Simon Lepe on 07-22-2024 Erythrocyte distribution width (RBC) [Ratio] 13.0 % 11.6-14.6 [facility] Estimation of creatinine jah aranceOrdered By: Simon Lepe on 07-22-2024 Estimated Creatinine Clearance Calc 249.00 ml/min 50-250 [facility] GFR/1.73 sq M.predicted brendan g non-blacks MDRD (S/P/Bld) [Vol rate/Area]Ordered By: Simon Lepe on 07-22-2024 Estimated GFR (MDRD) Non-Af Amer 128 >60 [facility] Comment on above: mL/min/1.73m2 CKD-EP I Creatinine Equation (2020) Glucose Ql (U)Ordered By: Wilmar Lepe on 07-22-2024 Urine Glucose (UA) Normal mg/dl Normal [facility] Hematocrit Auto (Bld) [Volum e fraction]Ordered By: Simon Lepe on 07-22-2024 Hematocrit (Bld) [Volume fraction] 45.1 % 40-54 [facility] Hemoglobin measurementOrdere d By: Simon Lepe on 07-22-2024 Hemoglobin (Bld) [Mass/Vol] 15.0 g/dL 13.0-16.5 [facility] Immature granulocytes/100 WB C Auto (Bld)Ordered By: Simon Lepe on 07-22-2024 Immature granulocytes/100 WBC (Bld) 0.300 % 0.0-0.9 [facility] Comment on above: IG% - Immature Granu locytes (promyelocytes, myelocytes and metamyelocytes) > 1% indicates that a LEFT SHIFT is Present. Ketones Test strip Ql (U)Ord ered By: Simon Lepe on 07-22-2024 Ketones Ql (U) 50 mg/dl High Negative [facility] - Chemistry and C hemistry - challengeOrdered By: Simon Lepe on 07-22-2024 AST [Catalytic activity/Vol] 106 U/L High <38 [facility] Lymphocytes Auto (Unsp spec) [#/Vol]Ordered By: Simon Lepe on 07-22-2024 Lymphocytes (Bld) [#/Vol] 2.05 10*3/uL 0.83-4.51 [facility] Lymphocytes/100 WBC Auto (Un sp spec)Ordered By: Simon Lepe on 07-22-2024 Lymphocytes/100 WBC (Bld) 31.2 % 19-41 [facility] MCV (mean corpuscular volume ) determinationOrdered By: Simon Lepe on 07-22-2024 MCV (RBC) [Entitic vol] 83.1 fL 80-94 [facility] Mean corpuscular hemoglobin (MCH) determinationOrdered By: Simon Lepe on 07-22-2024 MCH (RBC) [Entitic mass] 27.6 pg 27.0-32.0 [facility] Mean corpuscular hemoglobin concentration (MCHC) determinationOrdered By: Simon Lepe on 07-22-2024 MCHC (RBC) [Mass/Vol] 33.3 g/dL 32-36 [facility] Mean platelet volume determi nationOrdered By: Simon Lepe on 07-22-2024 Platelet mean volume (Bld) [Entitic vol] 8.9 fL 6.2-12.0 [facility] Microscopic analysis of urin e for red blood cells (RBC)Ordered By: Simon Lepe on 07-22-2024 Urine RBC 10-25 SEEN /hpf 0-5 [facility] Monocyte percentageOrdered B y: Simon Lepe on 07-22-2024 Monocytes/100 WBC (Bld) 7.6 % 0-10 [facility] Mucus LM Ql (Urine sed)Order ed By: Simon Lepe on 07-22-2024 Mucus Ql (Urine sed) 1+ /hpf [facility] Neutrophil percentageOrdered By: Simon Lepe on 07-22-2024 Neutrophils/100 WBC (Bld) 59.2 % 47-70 [facility] Nitrite Test strip Ql (U)Ord ered By: Simon Lepe on 07-22-2024 Nitrite Ql (U) Negative Negative [facility] Nucleated red blood cell per centageOrdered By: Simon Lepe on 07-22-2024 Nucleated RBC/100 WBC (Bld) [Ratio] 0 % 0-5 [facility] Platelet countOrdered By: Wilmar Lepe on 07-22-2024 Platelets (Bld) [#/Vol] 275 10*3/uL 150-450 [facility] Potassium (Unsp spec) [Mass/ Vol]Ordered By: Simon Lepe on 07-22-2024 Potassium [Moles/Vol] 3.3 mmol/L 3.3-5.1 [facility] Protein Test strip Ql (U)Ord ered By: Simon Lepe on 07-22-2024 Protein Ql (U) 30 mg/dl High Negative [facility] RBC Auto (Bld) [#/Vol]Ordere d By: Simon Lepe on 07-22-2024 RBC (Bld) [#/Vol] 5.43 10*6/uL 4.6-6.2 [facility] Serum creatinine measurement (mass/volume)Ordered By: Simon Lepe on 07-22-2024 Creatinine [Mass/Vol] 0.71 mg/dL 0.70-1.20 [facility] Serum globulin measurementOr dered By: Simon Lepe on 07-22-2024 Globulin (S) [Mass/Vol] 3.9 g/dL 2.2-4.2 [facility] Serum glucose measurement (m ass/volume)Ordered By: Simon Lepe on 07-22-2024 Glucose [Mass/Vol] 145 mg/dL High 70-99 [facility] Serum or plasma alanine yoder otransferase (ALT) measurementOrdered By: Simon Lepe on 07-22-2024 ALT [Catalytic activity/Vol] 154 U/L High <47 [facility] Serum or plasma albumin susanne urement (mass/volume)Ordered By: Simon Lepe on 07-22-2024 Albumin [Mass/Vol] 4.2 g/dL 3.5-5.0 [facility] Serum or plasma albumin/glob ulin mass ratioOrdered By: Simon Lepe on 07-22-2024 Albumin/Globulin [Mass ratio] 1.1 {ratio} 0.9-2.4 [facility] Serum or plasma alkaline juice sphatase measurementOrdered By: Simon Lepe on 07-22-2024 ALP [Catalytic activity/Vol] 80 U/L 40-129 [facility] Serum or plasma calcium susanne urement (mass/volume)Ordered By: Simon Lepe on 07-22-2024 Calcium [Mass/Vol] 9.0 mg/dL 7.6-11.0 [facility] Serum or plasma urea nitroge n measurement (mass/volume)Ordered By: Simon Lepe on 07-22-2024 Urea nitrogen [Mass/Vol] 7 mg/dL 4-19 [facility] Sodium levelOrdered By: Simon Lepe on 07-22-2024 Sodium [Moles/Vol] 140 mmol/L 133-145 [facility] Total proteinOrdered By: Mai Lepe on 07-22-2024 Protein [Mass/Vol] 8.0 g/dL 5.9-8.4 [facility] Urinalysis, Completeon 07-22 BACTERIA 1+ /hpf Normal None Seen [facility] Comment on above: Order Comment: CLEAN CATCH Performed By: #### L 400.0001 #### [facility] [address] [place], [address] EPI,SQUAMOUS 0-5 SEEN Normal 0-5 [facility] Comment on above: Order Comment: CLEAN CATCH Performed By: #### L 400.0001 #### [facility] [address] [place], [address] Mucus Ql (Urine sed) 1+ /hpf Normal [facility] Comment on above: Order Comment: CLEAN CATCH Performed By: #### L [id number] #### [facility] [address] [place], [address] WBC 0-5 SEEN Normal 0-5 [facility] Comment on above: Order Comment: CLEAN CATCH Performed By: #### L 400.0001 #### [facility] [address] [place], [address] RBC 10-25 SEEN Normal 0-5 [facility] Comment on above: Order Comment: CLEAN CATCH Performed By: #### L [id number] #### [facility] [address] [place], [address] Urine blood detectionOrdered By: Simon Lepe on 07-22-2024 Urine Occult Blood 250 /ul High Negative [facility] Urine clarityOrdered By: Mai Lpee on 07-22-2024 Clarity (U) Clear Clear [facility] Urine color determinationOrd ered By: Simon Lepe on 07-22-2024 Color (U) Yellow Yellow [facility] Urine leukocyte esterase det ection by dipstickOrdered By: Simon Lepe on 07-22-2024 Leukocyte esterase Test strip Ql (U) 100 /ul High Negative [facility] Urine pHOrdered By: Simon nava on 07-22-2024 pH (U) 6.0 [pH] 5.0 - 8.0 [facility] Urine sediment bacteria coun t by microscopy (number/high power field)Ordered By: Simon Lepe on 07-22-2024 Bacteria LM.HPF (Urine sed) [#/Area] 1 /[HPF] None Seen [facility] Urine specific gravity measu rementOrdered By: Simon Lepe on 07-22-2024 Specific gravity (U) [Rel density] 1.025 1.002-1.030 [facility] Urobilinogen Ql (U)Ordered B y: Simon Lepe on 07-22-2024 Urine Urobilinogen Normal mg/dl Normal [facility] White blood cell (WBC) count Ordered By: Simon Lepe on 07-22-2024 WBC (Bld) [#/Vol] 6.6 10*3/uL 4.4-11.0 [facility] White blood cell countOrdere d By: Simon Lepe on 07-22-2024 Urine WBC 0-5 SEEN /hpf 0-5 [facility] Absolute neutrophil countOrd ered By: Cary Naik on 07-18-2024 Neutrophils (Bld) [#/Vol] 10.1 10*3/uL High 2.0-7.7 [facility] Anion gap in Serum or Plasma Ordered By: Cary Naik on 07-18-2024 Anion gap [Moles/Vol] 15 mmol/L 5-15 [facility] BUN/creatinine ratioOrdered By: Cary Naik on 07-18-2024 Urea nitrogen/Creatinine [Mass ratio] 13.7 mg/mg 10-20 [facility] Basophil percentageOrdered B y: Cary Naik on 07-18-2024 Basophils/100 WBC (Bld) 0.4 % 0-1 [facility] Bilirubin, totalOrdered By: Cary Naik on 07-18-2024 Bilirubin [Mass/Vol] 0.56 mg/dL 0.00-1.30 [facility] CBC W/Diff, Automatedon 07-07 Absolute Lymph 1.59 X10 3/uL Normal 0.83-4.51 [facility] Comment on above: Performed By: #### L 500.4050, L501.2450, L100.0100 #### [facility] [address] [place], [address] Absolute Neut 10.1 X10 3/uL High 2.0-7.7 [facility] Comment on above: Performed By: #### L 500.4050, L501.2450, L100.0100 #### [facility] [address] [place], [address] Basophils/100 WBC (Bld) 0.4 % Normal 0-1 [facility] Comment on above: Performed By: #### L 500.4050, L501.2450, L100.0100 #### [facility] [address] [place], [address] Eosinophils/100 WBC (Bld) 0.6 % Normal 0-5 [facility] Comment on above: Performed By: #### L 500.4050, L501.2450, L100.0100 #### [facility] [address] [place], [address] Erythrocyte distribution width (RBC) [Ratio] 13.1 % Normal 11.6-14.6 [facility] Comment on above: Performed By: #### L 500.4050, L501.2450, L100.0100 #### [facility] [address] [place], [address] Hematocrit (Bld) [Volume fraction] 47.6 % Normal 40-54 [facility] Comment on above: Performed By: #### L 500.4050, L501.2450, L100.0100 #### [facility] [address] [place], [address] Hemoglobin (Bld) [Mass/Vol] 15.7 g/dL Normal 13.0-16.5 [facility] Comment on above: Performed By: #### L 500.4050, L501.2450, L100.0100 #### [facility] [address] [place], [address] IG% 0.400 Normal 0.0-0.9 [facility] Comment on above: Result Comment: IG% - Immature Granulocytes (promyelocytes, myelocytes and metamyelocytes) > 1% indicates that a LEFT SHIFT is Present. Performed By: #### L 500.4050, L501.2450, L100.0100 #### [facility] [address] [place], [address] Lymphocytes/100 WBC (Bld) 12.8 % Low 19-41 [facility] Comment on above: Performed By: #### L 500.4050, L501.2450, L100.0100 #### [facility] [address] [place], [address] MCH (RBC) [Entitic mass] 27.9 pg Normal 27.0-32.0 [facility] Comment on above: Performed By: #### L 500.4050, L501.2450, L100.0100 #### [facility] [address] [place], [address] MCHC (RBC) [Mass/Vol] 33.0 g/dL Normal 32-36 [facility] Comment on above: Performed By: #### L 500.4050, L501.2450, L100.0100 #### [facility] [address] [place], [address] MCV (RBC) [Entitic vol] 84.5 fL Normal 80-94 [facility] Comment on above: Performed By: #### L 500.4050, L501.2450, L100.0100 #### [facility] [address] [place], [address] Monocytes/100 WBC (Bld) 4.5 % Normal 0-10 [facility] Comment on above: Performed By: #### L 500.4050, L501.2450, L100.0100 #### [facility] [address] [place], [address] Neutrophils/100 WBC (Bld) 81.3 % High 47-70 [facility] Comment on above: Performed By: #### L 500.4050, L501.2450, L100.0100 #### [facility] [address] [place], [address] Nucleated RBC (Bld) [#/Vol] 0 10*3/uL Normal 0-5 [facility] Comment on above: Performed By: #### L 500.4050, L501.2450, L100.0100 #### [facility] [address] [place], [address] Platelet mean volume (Bld) [Entitic vol] 9.2 fL Normal 6.2-12.0 [facility] Comment on above: Performed By: #### L 500.4050, L501.2450, L100.0100 #### [facility] [address] [place], [address] Platelets (Bld) [#/Vol] 385 10*3/uL Normal 150-450 [facility] Comment on above: Performed By: #### L 500.4050, L501.2450, L100.0100 #### [facility] [address] [place], [address] RBC (Bld) [#/Vol] 5.63 10*6/uL Normal 4.6-6.2 [facility] Comment on above: Performed By: #### L 500.4050, L501.2450, L100.0100 #### [facility] [address] [place], [address] RDW SD 40.2 fl Normal 35.1-43.9 [facility] Comment on above: Performed By: #### L 500.4050, L501.2450, L100.0100 #### [facility] [address] [place], [address] WBC (Bld) [#/Vol] 12.4 10*3/uL High 4.4-11.0 [facility] Comment on above: Performed By: #### L 500.4050, L501.2450, L100.0100 #### [facility] [address] [place], [address] Carbon dioxide, total [Moles /volume] in Central venous bloodOrdered By: Cary Naik on 07-18-2024 CO2 [Moles/Vol] 20.9 mmol/L Low 21.0-32.0 [facility] Chloride assayOrdered By: Patience Naik on 07-18-2024 Chloride [Moles/Vol] 102 mmol/L 98-108 [facility] Comprehensive Metabolic Prof ilon 07-18-2024 Albumin [Mass/Vol] 4.6 g/dL Normal 3.5-5.0 [facility] Comment on above: Performed By: #### L 500.4050, L501.2450, L100.0100 #### [facility] [address] [place], [address] Albumin/Globulin [Mass ratio] 1.3 {ratio} Normal 0.9-2.4 [facility] Comment on above: Performed By: #### L 500.4050, L501.2450, L100.0100 #### [facility] [address] [place], [address] ALK PHOS 85 U/L Normal 40-129 [facility] Comment on above: Performed By: #### L 500.4050, L501.2450, L100.0100 #### [facility] [address] [place], [address] ALT [Catalytic activity/Vol] 119 U/L High <=46 [facility] Comment on above: Performed By: #### L 500.4050, L501.2450, L100.0100 #### [facility] [address] [place], [address] AST [Catalytic activity/Vol] 71 U/L High <=37 [facility] Comment on above: Performed By: #### L 500.4050, L501.2450, L100.0100 #### [facility] [address] [place], [address] Bilirubin [Mass/Vol] 0.56 mg/dL Normal 0.00-1.30 [facility] Comment on above: Performed By: #### L 500.4050, L501.2450, L100.0100 #### [facility] [address] [place], [address] BUN/CRE 13.7 RATIO Normal 10-20 [facility] Comment on above: Performed By: #### L 500.4050, L501.2450, L100.0100 #### [facility] [address] [place], [address] Calcium [Mass/Vol] 9.5 mg/dL Normal 7.6-11.0 [facility] Comment on above: Performed By: #### L 500.4050, L501.2450, L100.0100 #### [facility] [address] [place], [address] Chloride [Moles/Vol] 102 mmol/L Normal 98-108 [facility] Comment on above: Performed By: #### L 500.4050, L501.2450, L100.0100 #### [facility] [address] [place], [address] CO2 [Moles/Vol] 20.9 mmol/L Low 21.0-32.0 [facility] Comment on above: Performed By: #### L 500.4050, L501.2450, L100.0100 #### [facility] [address] [place], [address] Creatinine [Mass/Vol] 0.84 mg/dL Normal 0.70-1.20 [facility] Comment on above: Performed By: #### L 500.4050, L501.2450, L100.0100 #### [facility] [address] [place], [address] GAP 15 Normal 5-15 [facility] Comment on above: Performed By: #### L 500.4050, L501.2450, L100.0100 #### [facility] [address] [place], [address] GFR/1.73 sq M.predicted among non-blacks MDRD (S/P/Bld) [Vol rate/Area] 122 mL/min/{1.73_m2} Normal >60 [facility] Comment on above: Result Comment: mL/m in/1.73m2 CKD-EPI Creatinine Equation (2020) Performed By: #### L 500.4050, L501.2450, L100.0100 #### [facility] [address] [place], [address] Globulin (S) [Mass/Vol] 3.7 g/dL Normal 2.2-4.2 [facility] Comment on above: Performed By: #### L 500.4050, L501.2450, L100.0100 #### [facility] [address] [place], [address] Glucose [Mass/Vol] 174 mg/dL High 70-99 [facility] Comment on above: Performed By: #### L 500.4050, L501.2450, L100.0100 #### [facility] [address] [place], [address] Potassium [Moles/Vol] 3.9 mmol/L Normal 3.3-5.1 [facility] Comment on above: Performed By: #### L 500.4050, L501.2450, L100.0100 #### [facility] [address] [place], [address] Sodium [Moles/Vol] 138 mmol/L Normal 133-145 [facility] Comment on above: Performed By: #### L 500.4050, L501.2450, L100.0100 #### [facility] [address] [place], [address] T PROT 8.3 g/dL Normal 5.9-8.4 [facility] Comment on above: Performed By: #### L 500.4050, L501.2450, L100.0100 #### [facility] [address] [place], [address] Urea nitrogen [Mass/Vol] 12 mg/dL Normal 4-19 [facility] Comment on above: Performed By: #### L 500.4050, L501.2450, L100.0100 #### [facility] [address] [place], [address] Emergency Department Summary on 07-18-2024 Emergency Department Summary [facility] Medical Records Department [address] [place] [address] Emergency Department Summary 07/18/24 MR#: [id number] Acct: [id number] Name: YURIY RICK Rep #: [id number] : 1995 28 From: Steven Maradiaga DO PCP: Analilia Gongora DO Status:DEP ER Location: ED HPI History of Present Illness Chief Complaint: Abd Pain Narrative Narrative: 28-year-old male with PMH of HTN, GERD, DM2 who states last night he developed nausea, epigastric pain and diarrhea. He took his Prilosec before bed thinking it may have been GERD but it did not help. He did not take his other nighttime meds (blood pressure and metformin). He took Zofran ODT this morning and his nausea has resolved but he still has the upper abdominal pain and frequent nonbloody diarrhea. He was concerned because his fingerstick glucose was over 200. He denies smoking or drinking alcohol. No abdominal surgical history. [facility] Medical History (Updated 07/18/24 @ 12:58 by WILMAR Ly) HTN (hypertension) Diabetes Lumbar strain Home Medications ???Medication ???Instructions ???Recorded ???Last Taken ???Type amlodipine 5 mg tablet (Norvasc) 5 mg PO QDAY 04/29/24 Unknown Hist ory cyclobenzaprine 10 mg tablet 10 mg PO HS PRN muscle spasm #14 0 04/29/24 Unknown Rx tabs fexofenadine 60 mg capsule 60 mg PO BID 04/29/24 Unknown Hist ory folic acid 1 mg tablet 1 mg PO QDAY 04/29/24 Unknown Hist ory ibuprofen 600 mg tablet 600 mg PO Q6H #40 tabs 04/29/24 Un known Rx levothyroxine 50 mcg capsule 50 mcg PO QDAY 04/29/24 Unknown Hi story lisinopril 10 mg tablet 10 mg PO QDAY 04/29/24 Unknown His tory mecobalamin (vitamin B12) 500 mcg mcg PO 04/29/24 Unknown History chewable tablet metformin 500 mg tablet 500 mg PO QDAY 04/29/24 Unknown Hi story omeprazole magnesium 20 mg 20 mg PO QDAY 04/29/24 Unknown His tory tablet,delayed release (Prilosec OTC) ondansetron 4 mg disintegrating 4 mg PO Q8H PRN PRN Nausea #12 tab s 07/18/24 Unknown Rx tablet Allergy/AdvReac Type Severity Reaction Status Date / Time carbinoxamine (From [facility]) Allergy SOB Verified 07/18/24 11:38 chlorpheniramine (From Allergy SOB Verified 07/18/24 11:38 [facility] (phenylephrin-chlor phn)) codeine Allergy irritabilit Verified 07/18/24 11:38 y phenylephrine (From [facility] Allergy SOB Verified 07/18/24 11:38 (phenylephrin-chlor phn)) pseudoephedrine (From [facility]) Allergy SOB Verified 07/18/24 11:38 Seasonal Allergies: Uncoded Allergy Other Verified 07/18/24 11:38 Social History Smoking Status: Never smoker ROS ROS ED ROS Narrative Constitutional: Negative for fever, chills, malaise. CVS: Negative for chest pain. Respiratory: Negative for shortness of breath. GI: Negative for abdominal pain, nausea, diarrhea. Negative for vomiting, melena, hematochezia. : Negative for dysuria, hematuria. EXAM Physical Exam Narrative Exam Narrative: CONST: Patient sitting in no acute distress. EYES: Normal inspection. NECK: Normal inspection. RESP: No respiratory distress, CTAB. CVS: Regular rate and rhythm, no murmur, no gallop. ABD: Soft obese abdomen with minimal midline epigastric tenderness, no guarding or rebound, nondistended. SKIN: Color normal, no rash, warm, dry, intact. EXTREMITIES: Normal appearance, no pedal edema. NEURO: Alert and answering questions appropriately. PSYCH: Normal affect. Const Vital Signs: 07/18/24 11:38 07/18/24 13:37 Temperature 98.1 F Temperature Source Oral Pulse Rate 118 H 99 Respiratory Rate 18 18 Blood Pressure 221/107 H 150/92 H Blood Pressure Mean 145 111 Pulse Ox 98 97 Oxygen Delivery Method Room Air Physical Exam Const Vital Signs: 07/18/24 11:38 07/18/24 13:37 Temperature 98.1 F Temperature Source Oral Pulse Rate 118 H 99 Respiratory Rate 18 18 Blood Pressure 221/107 H 150/92 H Blood Pressure Mean 145 111 Pulse Ox 98 97 Oxygen Delivery Method Room Air MDM MDM MDM Narrative Medical decision making narrative: Differential includes but not limited to viral illness, GERD, PUD, pancreatitis, DKA 28-year-old male signed nausea, epigastric pain, and diarrhea since last night. He appears well and nontoxic. BP 221/107, HR 118, otherwise normal vital signs. He takes his medication at night and did not take lisinopril or amlodipine last evening. Overall he is a benign exam with minimal epigastric tenderness. Labs show WBC of 12.4. Normal electrolytes. Glucose 174, CO2 20.9, anion gap 15. There is mild transaminitis with normal lipase. He took Zofran at home but nausea has resolved. I ordered IV fluids, Toradol, Pepcid and lisinopril and amlodipine. Patient feels better and his vital signs have impro (more content not included)... Normal [facility] Eosinophil percentageOrdered By: Cary Naik on 07-18-2024 Eosinophils/100 WBC (Bld) 0.6 % 0-5 [facility] Erythrocyte distribution wid th (RBC) [Ratio]Ordered By: Cary Naik on 07-18-2024 Erythrocyte distribution width (RBC) [Entitic vol] 40.2 fL 35.1-43.9 [facility] Erythrocyte distribution wid th ratioOrdered By: Cary Naik on 07-18-2024 Erythrocyte distribution width (RBC) [Ratio] 13.1 % 11.6-14.6 [facility] GFR/1.73 sq M.predicted brendan g non-blacks MDRD (S/P/Bld) [Vol rate/Area]Ordered By: Cary Naik on 07-18-2024 Estimated GFR (MDRD) Non-Af Amer 122 >60 [facility] Comment on above: mL/min/1.73m2 CKD-EP I Creatinine Equation (2020) Hematocrit Auto (Bld) [Volum e fraction]Ordered By: Cary Naik on 07-18-2024 Hematocrit (Bld) [Volume fraction] 47.6 % 40-54 [facility] Hemoglobin measurementOrdere d By: Cary Naik on 07-18-2024 Hemoglobin (Bld) [Mass/Vol] 15.7 g/dL 13.0-16.5 [facility] Immature granulocytes/100 WB C Auto (Bld)Ordered By: Cary Naik on 07-18-2024 Immature granulocytes/100 WBC (Bld) 0.400 % 0.0-0.9 [facility] Comment on above: IG% - Immature Granu locytes (promyelocytes, myelocytes and metamyelocytes) > 1% indicates that a LEFT SHIFT is Present. Laboratory - Chemistry and C hemistry - challengeOrdered By: Cary Naik on 07-18-2024 AST [Catalytic activity/Vol] 71 U/L High <38 [facility] Lipaseon 07-18-2024 Lipase [Catalytic activity/Vol] 28 U/L Normal 13-75 [facility] Comment on above: Result Comment: Niko calabrese note: LIPASE revised reference range effective 22. New Lipase methodology. Expected to produce lower values than the previous assay method. NEW Reference Range: 13 - 75 U/L Performed By: #### L 500.4050, L501.2450, L100.0100 ####[facility] [id number] [place], [address] Lipase measurementOrdered By : Cary Naik on 07-18-2024 Lipase [Catalytic activity/Vol] 28 U/L 13-75 [facility] Comment on above: Please note:LIPASE r evised reference range effective 22. New Lipase methodology. Expected to produce lower values than the previous assay method. NEW Reference Range: 13 - 75 U/L Lymphocytes Auto (Unsp spec) [#/Vol]Ordered By: Cary Naik on 07-18-2024 Lymphocytes (Bld) [#/Vol] 1.59 10*3/uL 0.83-4.51 [facility] Lymphocytes/100 WBC Auto (Un sp spec)Ordered By: Cary Naik on 07-18-2024 Lymphocytes/100 WBC (Bld) 12.8 % Low 19-41 [facility] MCV (mean corpuscular volume ) determinationOrdered By: Cary Naik on 07-18-2024 MCV (RBC) [Entitic vol] 84.5 fL 80-94 [facility] Mean corpuscular hemoglobin (MCH) determinationOrdered By: Cary Naik on 07-18-2024 MCH (RBC) [Entitic mass] 27.9 pg 27.0-32.0 [facility] Mean corpuscular hemoglobin concentration (MCHC) determinationOrdered By: Cary Naik on 07-18-2024 MCHC (RBC) [Mass/Vol] 33.0 g/dL 32-36 [facility] Mean platelet volume determi nationOrdered By: Cary Naik on 07-18-2024 Platelet mean volume (Bld) [Entitic vol] 9.2 fL 6.2-12.0 [facility] Monocyte percentageOrdered B y: Cary Naik on 07-18-2024 Monocytes/100 WBC (Bld) 4.5 % 0-10 [facility] Neutrophil percentageOrdered By: Cary Naik on 07-18-2024 Neutrophils/100 WBC (Bld) 81.3 % High 47-70 [facility] Nucleated red blood cell per centageOrdered By: Cary Naik on 07-18-2024 Nucleated RBC/100 WBC (Bld) [Ratio] 0 % 0-5 [facility] Platelet countOrdered By: Patience Naik on 07-18-2024 Platelets (Bld) [#/Vol] 385 10*3/uL 150-450 [facility] Potassium (Unsp spec) [Mass/ Vol]Ordered By: Cary Naik on 07-18-2024 Potassium [Moles/Vol] 3.9 mmol/L 3.3-5.1 [facility] RBC Auto (Bld) [#/Vol]Ordere d By: Cary Naik on 07-18-2024 RBC (Bld) [#/Vol] 5.63 10*6/uL 4.6-6.2 [facility] Serum creatinine measurement (mass/volume)Ordered By: Cary Naik on 07-18-2024 Creatinine [Mass/Vol] 0.84 mg/dL 0.70-1.20 [facility] Serum globulin measurementOr dered By: Cary Naik on 07-18-2024 Globulin (S) [Mass/Vol] 3.7 g/dL 2.2-4.2 [facility] Serum glucose measurement (m ass/volume)Ordered By: Cary Naik on 07-18-2024 Glucose [Mass/Vol] 174 mg/dL High 70-99 [facility] Serum or plasma alanine yoder otransferase (ALT) measurementOrdered By: Cary Naik on 07-18-2024 ALT [Catalytic activity/Vol] 119 U/L High <47 [facility] Serum or plasma albumin susanne urement (mass/volume)Ordered By: Cary Naik on 07-18-2024 Albumin [Mass/Vol] 4.6 g/dL 3.5-5.0 [facility] Serum or plasma albumin/glob ulin mass ratioOrdered By: Cary Naik on 07-18-2024 Albumin/Globulin [Mass ratio] 1.3 {ratio} 0.9-2.4 [facility] Serum or plasma alkaline juice sphatase measurementOrdered By: Cary Naik on 07-18-2024 ALP [Catalytic activity/Vol] 85 U/L 40-129 [facility] Serum or plasma calcium susanne urement (mass/volume)Ordered By: Cary Naik on 07-18-2024 Calcium [Mass/Vol] 9.5 mg/dL 7.6-11.0 [facility] Serum or plasma urea nitroge n measurement (mass/volume)Ordered By: Cary Naik on 07-18-2024 Urea nitrogen [Mass/Vol] 12 mg/dL 4-19 [facility] Sodium levelOrdered By: Cary Naik on 07-18-2024 Sodium [Moles/Vol] 138 mmol/L 133-145 [facility] Total proteinOrdered By: Kamala Naik on 07-18-2024 Protein [Mass/Vol] 8.3 g/dL 5.9-8.4 [facility] White blood cell (WBC) count Ordered By: Cary Naik on 07-18-2024 WBC (Bld) [#/Vol] 12.4 10*3/uL High 4.4-11.0 [facility] Urgent Care Visit Reporton 0 04-29-2024 Urgent Care Visit Report [facility] [address], [address] [place] [address] OFFICE VISIT Date of Service: 04/29/24 MR#: [id number] Acct: [id number] Name: YURIY RICK Rep #: [id number] : 1995 Provider: WILMAR Raymond Age/Sex: 28/M Location: [facility] Status: Signed Intake Vital Signs 04/29/24 11:01 Height 5 ft 11 in Weight: 386 lb 6 oz BMI 53.8 BP 150/90 H Position Sitting Pulse 91 Temp 98.4 F Temp Source Oral Pulse Oximetry (%) 98 Oxygen Delivery Method room air Intake Visit Reasons: [place]AT[place] Accompanied by: Self Is patient in pain?: Yes Pain scale (1-10): 4 Allergies carbinoxamine (From [facility]) Allergy (Verified 04/29/24 11:03) SOB chlorpheniramine (From [facility] (phenylephrin-chlor phn)) Allergy (Verified 04/29/24 11:03) SOB codeine Allergy (Verified 04/29/24 11:03) irritability phenylephrine (From [facility] (phenylephrin-chlor phn)) Allergy (Verified 04/29/24 11:03) SOB pseudoephedrine (From [facility]) Allergy (Verified 04/29/24 11:03) SOB Seasonal Allergies: Uncoded Allergy (Verified 04/29/24 11:03) Other Medications ???Medication ???Instructions ???Recorded ???Confirmed ???Type amlodipine 5 mg tablet (Norvasc) 5 mg PO QDAY 04/29/24 04/29/24 History cyclobenzaprine 10 mg tablet 10 mg PO HS PRN muscle spasm #14 04/29/24 04/29/24 Rx tabs fexofenadine 60 mg capsule 60 mg PO BID 04/29/24 04/29/24 History folic acid 1 mg tablet 1 mg PO QDAY 04/29/24 04/29/24 History ibuprofen 600 mg tablet 600 mg PO Q6H #40 tabs 04/29/24 04/29/24 Rx levothyroxine 50 mcg capsule 50 mcg PO QDAY 04/29/24 04/29/24 History lisinopril 10 mg tablet 10 mg PO QDAY 04/29/24 04/29/24 History mecobalamin (vitamin B12) 500 mcg mcg PO 04/29/24 04/29/24 History chewable tablet metformin 500 mg tablet 500 mg PO QDAY 04/29/24 04/29/24 History omeprazole magnesium 20 mg 20 mg PO QDAY 04/29/24 04/29/24 History tablet,delayed release (Prilosec OTC) Nurse's Note: Patient has Right side Sciatic pain that started last night. Patient states he did stretches for it. [facility] Medical History (Updated 04/29/24 @ 11:12 by Andrew DONOVAN, PA) Lumbar strain HPI HPI Details: YURIY RICK, is a 28 M who presents to the office today for initial evaluation of right low back pain beginning yesterday evening, noting he does not exceptional amount of sitting throughout the day as well as at work. He notes he feels the symptoms are probably contributed to the chronic setting that he does, sees had no history of recent fall or trauma to the same. He notes no caudal radicular complaints upon questioning. He has taken no [id number] products to assist. He notes no other associated symptoms and no other alleviating/aggrava ting factors. ROS Const Constitutional: No other (As above) Exam Const General: cooperative, healthy appearing and no acute distress Orientation: alert and awake Resp Effort Inspection: normal respiratory effort and able to speak in complete sentences Cardio Rate: regular rate Pulses: radial pulses present GI Inspection: normal to inspection, large pannus and obesity Palpation: soft Musc Thoracic/Lumbar Spine: thoracic and lumbar spine normal to inspection, straight leg raise negative bilaterally, paraspinal tenderness on the right in the mid lumbar and in the lower lumbar, thoraco- lumbar ROM limited with forward flexion (As well as extension), with lateral flexion to the right and with rotation to the right, no thoraco-lumbar spasm and no thoracic spinal tenderness Skin General: no rashes or lesions noted Neuro General: patient alert and patient awake Cognition: normal cognition Speech: speech normal Extrem General: normal to inspection Psych Appearance: grossly normal Mental Status: mental status grossly normal Mood: congruent mood Affect: normal affect Speech and Movement: speech and movement normal Attitude: cooperative Coding Level of Care Code Off vis,new,level 3 Diagnoses Lumbar strain S39.012A Assessment and Plan Assessment and Plan (1) Lumbar strain: Status: Acute Plan: Ibuprofen and Flexeril as prescribed today. Supportive measures including rest, home range of motion exercises as instructed today. Physical therapy to evaluate and treat. Follow-up with PCP in 7 to 10 days should symptoms not improve, ED sooner should symptoms only worsen or any other concerns develop. Patient states acknowledging understanding all the above. This note was generated with [employer] dictation software. It may contain incorrect words, spelling, and punctuation that were not noted in checking the note before signing. Orders: Referrals PT Referral S39.012A - Strain of muscle, fascia and tendon of lower back, initial encounter [facility] (more content not included)... Normal [facility] Vital Signs Date Time Vital Sign Value Performing Clinician Facility 11-17-2024 11:20-0400 Body height 180.3 cm George Myra DO Work Phone: [facility] 11-17-2024 11:20-0400 Body mass index (BMI) [Ratio] 53.63 kg/m2 George Myra DO Work Phone: [facility] 11-17-2024 11:20-0400 Body temperature 99 [degF] George Myra DO Work Phone: [facility] 11-17-2024 11:20-0400 Body weight 174.41 kg George Myra DO Work Phone: [facility] 11-17-2024 11:20-0400 Diastolic blood pressure 83 mm[Hg] George Myra DO Work Phone: [facility] 11-17-2024 11:20-0400 Heart rate 82 /min George Myra DO Work Phone: [facility] 11-17-2024 11:20-0400 Respiratory rate 16 /min George Myra DO Work Phone: [facility] 11-17-2024 11:20-0400 SaO2% (BldA) [Mass fraction] 95 % George Myra DO Work Phone: [facility] 11-17-2024 11:20-0400 Systolic blood pressure 134 mm[Hg] George Myra DO Work Phone: [facility] 07-22-2024 13:50-0400 Body temperature 97.4 [degF] Dr. Steven Maradiaga DO Work Phone: [facility] 07-22-2024 13:50-0400 Diastolic blood pressure 98 mm[Hg] Dr. Steven Maradiaga DO Work Phone: [facility] 07-22-2024 13:50-0400 Heart rate 90 /min Dr. Steven Maradiaga DO Work Phone: [facility] 07-22-2024 13:50-0400 Respiratory rate 18 /min Dr. Steven Maradiaga DO Work Phone: [facility] 07-22-2024 13:50-0400 SaO2% (BldA) [Mass fraction] 98 % Dr. Steven Maradiaga DO Work Phone: 8(331)150-346510 [place] [address] 07-22-2024 13:50-0400 Systolic blood pressure 157 mm[Hg] Dr. Steven Mardaiaga DO Work Phone: 3(304)815-448110 [place] [address] 07-22-2024 10:42-0400 Body height 180.[address] Steven Maradiaga DO Work Phone: 4(292)554-378910 [place] [address] 07-22-2024 10:42-0400 Body mass index (BMI) [Ratio] 52.6 kg/m2 Dr. Steven Maradiaga DO Work Phone: 8(782)689-694207 [place] [address] 07-22-2024 10:42-0400 Body weight 171.[address] Steven Maradiaga DO Work Phone: 2(718)534-189107 [place] [address] 07-18-2024 13:37-0400 Diastolic blood pressure 92 mm[Hg] Dr. Steven Maradiaga DO Work Phone: 4(887)670-509107 [place] [address] 07-18-2024 13:37-0400 Heart rate 99 /min Dr. Steven Maradiaga DO Work Phone: 4(135)466-806707 [place] [address] 07-18-2024 13:37-0400 Respiratory rate 18 /min Dr. Steven Maradiaga DO Work Phone: 3([phone])997-678207 [place] [address] 07-18-2024 13:37-0400 SaO2% (BldA) [Mass fraction] 97 % Dr. Steven Maradiaga DO Work Phone: 9(891)963-401510 [place] [address] 07-18-2024 13:37-0400 Systolic blood pressure 150 mm[Hg] Dr. Steven Maradiaga DO Work Phone: 2(081)888-848207 [place] [address] 07-18-2024 11:40-0400 Body mass index (BMI) [Ratio] 52.7 kg/m2 Dr. Steven Maradiaga DO Work Phone: 3([phone])740-691707 [place] [address] 07-18-2024 11:40-0400 Body weight 171.[address] Steven Maradiaga DO Work Phone: 6([phone])475-979910 [place] [address] 07-18-2024 11:38-0400 Body height 180.[address] Steven Maradiaga DO Work Phone: [facility] 07-18-2024 11:38-0400 Body temperature 98.1 [degF] Dr. Steven Maradiaga DO Work Phone: [facility] 06-16-2024 13:34-0400 Body height 180.3 cm Benny Tyson MD Work Phone: [facility] 06-16-2024 13:34-0400 Body mass index (BMI) [Ratio] 54.39 kg/m2 Benny Tyson MD Work Phone: [facility] 06-16-2024 13:34-0400 Body weight 176.9 kg Benny Tyson MD Work Phone: [facility] 06-16-2024 13:34-0400 Diastolic blood pressure 90 mm[Hg] Benny Tyson MD Work Phone: [facility] 06-16-2024 13:34-0400 Heart rate 91 /min Benny Tyson MD Work Phone: [facility] 06-16-2024 13:34-0400 Respiratory rate 14 /min Benny Tyson MD Work Phone: [facility] 06-16-2024 13:34-0400 SaO2% (BldA) [Mass fraction] 96 % Benny Tyson MD Work Phone: [facility] 06-16-2024 13:34-0400 Systolic blood pressure 144 mm[Hg] Benny Tyson MD Work Phone: [facility] 04-29-2024 11:01-0500 Body mass index (BMI) [Ratio] 53.8 kg/m2 Dr. Steven Maradiaga DO Work Phone: [facility] 04-29-2024 11:01-0500 Body temperature 98.4 [degF] Dr. Steven Maradiaga DO Work Phone: [facility] 04-29-2024 11:01-0500 Body weight 175.[address] Steven Maradiaga DO Work Phone: [facility] 04-29-2024 11:01-0500 Diastolic blood pressure 90 mm[Hg] Dr. Steven Maradiaga DO Work Phone: [facility] 04-29-2024 11:01-0500 Heart rate 91 /min Dr. Steven Maradiaga DO Work Phone: [facility] 04-29-2024 11:01-0500 SaO2% (BldA) [Mass fraction] 98 % Dr. Steven Maradiaga DO Work Phone: [facility] 04-29-2024 11:01-0500 Systolic blood pressure 150 mm[Hg] Dr. Steven Maradiaga DO Work Phone: [facility] Encounters Encounter Date Encounter Type Care Provider Facility Start: 11-22-2024 Patient encounter status George Jiménez Phone: [facility] Start: 11-17-2024 End: 11-17-2024 Initial preventive medicine new pt age 18-39yrs George Smith DO Work Phone: [facility] Comment on above: Well adult exam (Marcela mckeon Dx); Type 2 diabetes mellitus without complication, without long-term current use of insulin (HCC); B12 deficiency; Primary hypertension; Hemorrhoids, unspecified hemorrhoid type; Sebaceous cyst; Morbid obesity with body mass index (BMI) of 40.0 or higher ([facility]) Start: 11-17-2024 End: 11-17-2024 Patient encounter status George Jiménez Phone: [facility] Start: 11-17-2024 End: 11-17-2024 ambulatory GEORGE SMITH [facility] Start: 11-17-2024 End: 11-17-2024 Encounter for general adult medical examination without abnormal findings GEORGE SMITH [facility] Start: 07-22-2024 End: 07-22-2024 Emergency department patient visit Dr. Steven Maradiaga DO Work Phone: -Emergency Department Work Phone: Start: 07-18-2024 End: 07-18-2024 Emergency department patient visit Dr. Steven Maradiaga DO Work Phone: -Emergency Department Work Phone: Start: 06-16-2024 End: 06-16-2024 ambulatory CHELE GONGORA [facility] Start: 06-16-2024 End: 06-16-2024 Office outpatient new 30 minutes Chele Johnsonnger DO Work Phone: [facility] Comment on above: Other hemorrhoids (P rimary Dx) Start: 06-08-2024 End: 06-08-2024 Transcribe Orders Chele Rob Rolan DO Work Phone: [facility] Comment on above: Internal hemorrhoids (Primary Dx) Start: 04-29-2024 End: 04-29-2024 Patient encounter procedure Andrew DONOVAN [facility] Work Phone: Start: 04-29-2024 End: 04-29-2024 ambulatory Andrew DONOVAN Facility:[facility] Procedures Date Procedure Procedure Detail Performing Clinician Start: 11-17-2024 Hemoglobin glycosyla reuben a1c George Smith DO Work Phone: Start: 07-22-2024 Computed tomography of abdomen and pelvis with intravenous contrast Dr. Steven Maradiaga DO Work Phone: Plan of Treatment Date Care Activity Detail Author Start: 11-17-2025 Depression screening using PHQ-9 (Patient Health Questionnaire 9) score Depression Screening/Follow-Up (PHQ-2/9) [facility] Start: 11-17-2025 History and physical examination, annual for health maintenance Wellness Visit [facility] Start: 05-20-2025 Hemoglobin A1c measurement A1C [facility] Start: 12-21-2024 End: 12-21-2024 Patient encounter procedure 12/21/2024 10:40 AM EDT Office Visit [facility] [address] [place] [address] George Smith DO [address] [id number] [facility] Start: 12-07-2024 Influenza vaccination Influenza Vacc ine (#1) [facility] Start: 07-22-2024 Bacteria identified in Urine by Culture Urine Culture [facility] Start: 07-22-[address] [facility] Start: 07-22-[address] [facility] Start: 07-21-2024 End: 07-21-2024 Patient encounter procedure 07/21/2024 1:00 PM EDT Office Visit [facility] [address] [place] [address] Medical Office Building[address] [place] [address] Benny Tyson MD [address] [address] [facility] Start: 07-18-[address] [facility] Start: 06-16-2024 End: 06-16-2024 Patient encounter procedure 06/16/2024 1:15 PM EDT Office Visit [facility] [address] [facility] [address] [place] [address] Chele Gongora, DO [address] [place] [address] Benny Tyson MD [address] [address] [facility] Start: 04-29-2024 Patient referral [facility] Work Phone: Start: 12-08-2023 COVID-19 Vaccine ( season) COVID-19 Vaccine ( season) [facility] Start: 12-08-2023 Influenza vaccination Influenza Vacc ine (#1) [facility] Start: 10-08-2014 Pneumococcal Vaccine : Ped or At-Risk (1 of 2 - PCV) Pneumococcal Vaccine: Ped or At-Risk (1 of 2 - PCV) [facility] Start: 10-08-2013 Hepatitis C screening Hepatitis C Sc reening [facility] Start: 10-08-2010 HIV screening HIV Screening [facility] Start: 2007 Depression screening using PHQ-9 (Patient Health Questionnaire 9) score Depression Screening/Follow-Up (PHQ-2/9) [facility] Start: 10-08-2005 Diabetic foot examination Diabetic Foot Exam [facility] Start: 10-08-2005 eGFR Diabetes eGFR Diabetes [facility] Start: 10-08-2005 Glaucoma screening Diabetic Eye Exam [facility] Start: 10-08-2005 Urine screening for protein Urine (micro)albumin/creatini ne ratio - Diabetes [facility] Start: 10-08-1998 History and physical examination, annual for health maintenance Wellness Visit [facility] Start: 1995 Tetanus vaccination Tetanus: Every 1 0yrs [facility] End: 11-17-2025 Cobalamin (Vitamin B12) [Mass/volume] in Serum or Plasma Vitamin B12 Lab Routine Well adult exam B12 deficiency 1 Occurrences starting 11/17/2024 until 11/17/2025 [facility] Comment on above: 1 Occurrences starti ng 11/17/2024 until 11/17/2025 End: 11-17-2025 Complete blood count with white cell differential, manual CBC and Differential Lab Routine Well adult exam 1 Occurrences starting 11/17/2024 until 11/17/2025 [facility] Work Phone: Comment on above: 1 Occurrences starti ng 11/17/2024 until 11/17/2025 End: 11-17-2025 Comprehensive metabolic 2000 panel - Serum or Plasma Comprehensive Metabolic Panel Lab Routine Well adult exam Type 2 diabetes mellitus without complication, without long-term current use of insulin (HCC) 1 Occurrences starting 11/17/2024 until 11/17/2025 [facility] Comment on above: 1 Occurrences starti ng 11/17/2024 until 11/17/2025 End: 11-17-2025 Lipid 1996 panel - Serum or Plasma Lipid Panel Lab Routine Well adult exam 1 Occurrences starting 11/17/2024 until 11/17/2025 [facility] Comment on above: 1 Occurrences starti ng 11/17/2024 until 11/17/[address] [facility] Work Phone: Patient referral [facility] Work Phone: End: 11-17-2025 Thyrotropin [Units/volume] in Serum or Plasma TSH with Reflex Free T4 Lab Routine Well adult exam 1 Occurrences starting 11/17/2024 until 11/17/2025 [facility] Comment on above: 1 Occurrences starti ng 11/17/2024 until 11/17/2025 Urine culture [facility] Payers Date Payer Category Payer Self-pay 2024 Managed Care PPO (unspecified) [employer] P[employer] [id number] 2024 Unknown [id number] 1995 Unknown [id number] 1995 Unknown [id number] Unknown [id number] Unknown [id number] Unknown [id number] Social History Date Type [facility]ail [facility] Start: 06-07-2014 End: 08-12-2025 History of Social function [facility] Start: 06-07-2014 End: 11-17-2024 Tobacco use panel [facility] Start: 1995 Sex assigned at Not on file [facility] Start: 06-16-2024 End: 07-22-2024 Tobacco smoking status NHIS Never smoked tobacco [facility] Start: 06-16-2024 Tobacco use and exposure Smokeless tobacco [facility]user [facility] Start: 06-16-2024 End: 11-22-2024 Alcoholic beverage intake Ex-drinker (finding) [facility] Start: 06-16-2024 Alcohol Comment once a year, very rare [facility] Start: 07-18-2024 End: 07-22-2024 Sex Male (finding) [facility] Start: 1995 Sex Assigned At Male [facility] Frequency of Communication with Friends and Family Not on file [facility] (I/We) worried wheth er (my/our) food would run out before (I/we) got money to buy more. Never true [facility] Start: 10-19-2024 Gender identity Identifies as male gender (finding) [facility] Start: 10-19-2024 Sexual orientation Heterosexual (finding) [facility] Clinical Notes 04-29-2024 to 11-22-2024 Assessment & Plan Note - George Smith DO - 11/22/2024 11:06 PM EDTAssessment & Plan Note - George Smith DO - 11/22/2024 11:06 PM EDTPatient InstructionsAttachments Note Date & Type Note Facility 11-22-2024 Evaluation + Plan note Associated Problem(s): Morbid obesity with body mass index (BMI) of 40.0 or higher (HCC) Due to unhealthy diet and excess calories, sedentary lifestyle. With comorbid DM2, HTN - Advised to reduce junk food, cook at home more often, increase vegetables - Increase exercise, goal 150 minutes weekly cardiovascular exercise - Monitor [facility] 11-22-2024 Miscellaneous Notes Associated Problem(s): Morbid obesity with body mass index (BMI) of 40.0 or higher (HCC) Due to unhealthy diet and excess calories, sedentary lifestyle. With comorbid DM2, HTN - Advised to reduce junk food, cook at home more often, increase vegetables - Increase exercise, goal 150 minutes weekly cardiovascular exercise - Monitor Associated Problem(s): Sebaceous cyst Anterior chest lump, fluctuating in size and fluctuating discomfort. Most consistent with sebaceous cyst. - May apply warm compresses to encourage draining - Wash daily with mild soap and water - Monitor Associated Problem(s): Hemorrhoids He endorses a few episodes of rectal bleeding. Denies straining most of the time. Metamucil worsened his constipation. No issues currently. - Continue to monitor Associated Problem(s): Well adult exam 29-year-old male with HTN, DM2, hypothyroidism, obesity. - Routine labs ordered - Discussed healthy lifestyle including well-balanced diet, decreasing junk food, cooking at home more often. Increase cardiovascular exercise, goal 150 minutes weekly. - Follow-up in 1 month Associated Problem(s): Type 2 diabetes mellitus without complication, without long-term current use of insulin (HCC) HbA1c goal <7%. Currently taking metformin XL 500 mg once daily. Immediate release formula caused GI side effects. He reports fasting BG recently have been 150-170s. POC A1c today is 7.3%. Not on statin therapy, consider initiating in future visit. - Increase metformin to 1000 mg once daily - Follow-up in 1 month Associated Problem(s): Hypertension BP goal <140/90. Currently taking lisinopril 20 mg and amlodipine 10 mg daily. - Continue current medication and monitor documented in this encounter [facility] 11-22-2024 Evaluation + Plan note Associated Problem(s): Sebaceous cyst Anterior chest lump, fluctuating in size and fluctuating discomfort. Most consistent with sebaceous cyst. - May apply warm compresses to encourage draining - Wash daily with mild soap and water - Monitor [facility] 11-22-2024 Evaluation + Plan note Associated Problem(s): Hemorrhoids He endorses a few episodes of rectal bleeding. Denies straining most of the time. Metamucil worsened his constipation. No issues currently. - Continue to monitor [facility] 11-22-2024 Evaluation + Plan note Associated Problem(s): Well adult exam 29-year-old male with HTN, DM2, hypothyroidism, obesity. - Routine labs ordered - Discussed healthy lifestyle including well-balanced diet, decreasing junk food, cooking at home more often. Increase cardiovascular exercise, goal 150 minutes weekly. - Follow-up in 1 month [facility] 11-22-2024 Evaluation + Plan note Associated Problem(s): Type 2 diabetes mellitus without complication, without long-term current use of insulin (HCC) HbA1c goal <7%. Currently taking metformin XL 500 mg once daily. Immediate release formula caused GI side effects. He reports fasting BG recently have been 150-170s. POC A1c today is 7.3%. Not on statin therapy, consider initiating in future visit. - Increase metformin to 1000 mg once daily - Follow-up in 1 month [facility] 11-22-2024 Evaluation + Plan note Associated Problem(s): Hypertension BP goal <140/90. Currently taking lisinopril 20 mg and amlodipine 10 mg daily. - Continue current medication and monitor [facility] 11-17-2024 Instructions George Smith DO - 11/17/2024 11:47 AM EDT Try the Calm susan for help sleeping. You can use over the counter miralax for constipation. The following attachments cannot be sent through Care Everywhere.Sleep Health: General Info (Cymro)documented in this encounter [facility] 11-17-2024 History of Present illness Narrative Images from the original note were not included. Assessment/Plan: Hypertension BP goal <140/90. Currently taking lisinopril 20 mg and amlodipine 10 mg daily. - Continue current medication and monitor Type 2 diabetes mellitus without complication, without long-term current use of insulin ([facility]) HbA1c goal <7%. Currently taking metformin XL 500 mg once daily. Immediate release formula caused GI side effects. He reports fasting BG recently have been 150-170s. POC A1c today is 7.3%. Not on statin therapy, consider initiating in future visit. - Increase metformin to 1000 mg once daily - Follow-up in 1 month Well adult exam 29-year-old male with HTN, DM2, hypothyroidism, obesity. - Routine labs ordered - Discussed healthy lifestyle including well-balanced diet, decreasing junk food, cooking at home more often. Increase cardiovascular exercise, goal 150 minutes weekly. - Follow-up in 1 month Hemorrhoids He endorses a few episodes of rectal bleeding. Denies straining most of the time. Metamucil worsened his constipation. No issues currently. - Continue to monitor Sebaceous cyst Anterior chest lump, fluctuating in size and fluctuating discomfort. Most consistent with sebaceous cyst. - May apply warm compresses to encourage draining - Wash daily with mild soap and water - Monitor Morbid obesity with body mass index (BMI) of 40.0 or higher (HCC) Due to unhealthy diet and excess calories, sedentary lifestyle. With comorbid DM2, HTN - Advised to reduce junk food, cook at home more often, increase vegetables - Increase exercise, goal 150 minutes weekly cardiovascular exercise - Monitor Subjective: Yuriy Rick is a 29 y.o. male Chief Complaint Patient presents with Establish Care Pt here to establish care. Patient presents to establish care. Previous PCP in [place]. PMH: HTN, DM2, hypothyroidism, GERD, environmental allergies, vitamin B12 deficiency HTN Currently taking lisinopril 20 mg and amlodipine 10 mg daily. BP today is 130/83. DM2 On metformin XL 500 mg once daily. Immediate release caused GI side effects. He has never been on any other antihyperglycemic medication. He reports he has had high blood sugars in the past couple of weeks. He had a BG of 380 one day. Fasting BG 150-170s. Hemorrhoids He endorses a few episodes of rectal bleeding. Denies straining most of the time. He trialed Metamucil, but reports it worsened his constipation. Lump on anterior chest Present for about 1 month, fluctuating in size and fluctuating discomfort. Denies drainage. Previously erythematous, not now. Specialists: none Diet: Eat a lot of junk food. Doesn't cook at home much. He doesn't like many vegetables. 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 Review of Systems Objective: PACU Vitals 11/17/24 1120 BP: 134/83 Pulse: 82 Resp: 16 Temp: 99 F (37.2 C) SpO2: 95% Physical Exam Constitutional: General: He is not in acute distress. Appearance: Normal appearance. He is not ill-appearing, toxic-appearing or diaphoretic. HENT: Head: Normocephalic and atraumatic. Eyes: General: No scleral icterus. Cardiovascular: Rate and Rhythm: Normal rate and regular rhythm. Pulmonary: Effort: Pulmonary effort is normal. No respiratory distress. Breath sounds: Normal breath sounds. No wheezing or rales. Abdominal: General: Abdomen is flat. There is no distension. Palpations: Abdomen is soft. Tenderness: There is no abdominal tenderness. There is no right CVA tenderness or guarding. Skin: General: Skin is warm and dry. Comments: Small, round, mobile, subcutaneous lesion on left anterior chest. No erythema or drainage. Neurological: General: No focal deficit present. Mental Status: He is alert. Psychiatric: Mood and Affect: Mood normal. For any new medications prescribed today, patient was educated about indications for the medication, how to take the medication and potential side effects of the medications. My ongoing relationship with Yuriy Rick requires continued responsibility and cognitive effort of being the focal point for all services related to chronic condition(s). George Smith DO 11/17/2024 2:17 PM PHQ-9 Review Little interest or pleasure in doing things 2 Feeling down, depressed, or hopeless 0 PHQ-2 Total Score 2 Trouble falling or staying asleep, or sleeping too much 1 Feeling tired or having little energy 1 Poor appetite or overeating 2 Feeling bad about yourself - or that you are a failure or have let yourself or your family down 0 Trouble concentrating on things, such as reading the newspaper or watching television 0 Moving or speaking so slowly that other people could have noticed. Or the opposite - being so fidgety or restless that you have been moving around a lot more than usual 0 Thoughts that you would be better off , or of hurting yourself in some way 0 PHQ-9 Total Score 6 If you checked off any problems, how difficult have these problems made it for you to do your work, take care of things at home, or get along with other people? Not difficult at all documented in this encounter [facility] 11-17-2024 Note Assessment/Plan: Hypertension BP goal <140/90. Currently taking lisinopril 20 mg and amlodipine 10 mg daily. - Continue current medication and monitor Type 2 diabetes mellitus without complication, without long-term current use of insulin ([facility]) HbA1c goal <7%. Currently taking metformin XL 500 mg once daily. Immediate release formula caused GI side effects. He reports fasting BG recently have been 150-170s. POC A1c today is 7.3%. Not on statin therapy, consider initiating in future visit. - Increase metformin to 1000 mg once daily - Follow-up in 1 month Well adult exam 29-year-old male with HTN, DM2, hypothyroidism, obesity. - Routine labs ordered - Discussed healthy lifestyle including well-balanced diet, decreasing junk food, cooking at home more often. Increase cardiovascular exercise, goal 150 minutes weekly. - Follow-up in 1 month Hemorrhoids He endorses a few episodes of rectal bleeding. Denies straining most of the time. Metamucil worsened his constipation. No issues currently. - Continue to monitor Sebaceous cyst Anterior chest lump, fluctuating in size and fluctuating discomfort. Most consistent with sebaceous cyst. - May apply warm compresses to encourage draining - Wash daily with mild soap and water - Monitor Morbid obesity with body mass index (BMI) of 40.0 or higher ([facility]) Due to unhealthy diet and excess calories, sedentary lifestyle. With comorbid DM2, HTN - Advised to reduce junk food, cook at home more often, increase vegetables - Increase exercise, goal 150 minutes weekly cardiovascular exercise - Monitor Subjective: Yuriy Rick is a 29 y.o. male Chief Complaint Patient presents with Establish Care Pt here to establish care. Patient presents to establish care. Previous PCP in [place]. PMH: HTN, DM2, hypothyroidism, GERD, environmental allergies, vitamin B12 deficiency HTN Currently taking lisinopril 20 mg and amlodipine 10 mg daily. BP today is 130/83. DM2 On metformin XL 500 mg once daily. Immediate release caused GI side effects. He has never been on any other antihyperglycemic medication. He reports he has had high blood sugars in the past couple of weeks. He had a BG of 380 one day. Fasting BG 150-170s. Hemorrhoids He endorses a few episodes of rectal bleeding. Denies straining most of the time. He trialed Metamucil, but reports it worsened his constipation. Lump on anterior chest Present for about 1 month, fluctuating in size and fluctuating discomfort. Denies drainage. Previously erythematous, not now. Specialists: none Diet: Eat a lot of junk food. Doesn't cook at home much. He doesn't like many vegetables. 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 Review of Systems Objective: PACU Vitals 11/17/24 1120 BP: 134/83 Pulse: 82 Resp: 16 Temp: 99 degrees F (37.2 degrees C) SpO2: 95% Physical Exam Constitutional: General: He is not in acute distress. Appearance: Normal appearance. He is not ill-appearing, toxic-appearing or diaphoretic. HENT: Head: Normocephalic and atraumatic. Eyes: General: No scleral icterus. Cardiovascular: Rate and Rhythm: Normal rate and regular rhythm. Pulmonary: Effort: Pulmonary effort is normal. No respiratory distress. Breath sounds: Normal breath sounds. No wheezing or rales. Abdominal: General: Abdomen is flat. There is no distension. Palpations: Abdomen is soft. Tenderness: There is no abdominal tenderness. There is no right CVA tenderness or guarding. Skin: General: Skin is warm and dry. Comments: Small, round, mobile, subcutaneous lesion on left anterior chest. No erythema or drainage. Neurological: General: No focal deficit present. Mental Status: He is alert. Psychiatric: Mood and Affect: Mood normal. For any new medications prescribed today, patient was educated about indications for the medication, how to take the medication and potential side effects of the medications. My ongoing relationship with Yuriy Rick requires continued responsibility and cognitive effort of being the focal point for all services related to chronic condition(s). George Smith DO 11/17/2024 2:17 PM PHQ-9 Review Little interest or pleasure in doing things 2 Feeling down, depressed, or hopeless 0 PHQ-2 Total Score 2 Trouble falling or staying asleep, or sleeping too much 1 Feeling tired or having little energy 1 Poor appetite or overeating 2 Feeling bad about yourself - or that you are a failure or have let yourself or your family down 0 Trouble concentrating on things, such as reading the newspaper or watching tele (more content not included)... [facility] 07-22-2024 Radiology Diagnostic study note [facility] Services [address] [place], [place] [id number] Abdomen/Pelvis W IV Cont ONLY MR#: [id number] Acct: [id number] Name: YURIY RICK Rep #: [id number] : 1995 M 28 From: Erickson Moody MD PCP: Analilia Gongora DO Status: REG ER Study:Abdomen/Pelvis W IV Cont ONLY Date of E xam: 07/22/24 Exam# [id number] Ordering Dr: Simon Sheehan PROCEDURE: ABDOMEN/PELVIS W IV CONT ONLY 07/22/2024 REASON FOR EXAM: ABDOMINAL PAIN Hematuria. Diarrhea. TECHNIQUE: Abdomen and pelvis CT with intravenous contrast. Coronal and Sagittal reconstruction series were provided. PATIENT PREPARATION: Per protocol ORAL CONTRAST TYPE: None. CONTRAST: Isovue-300 VOLUME: 100 mL One or more dose reduction techniques were used (e.g., Automated exposure control, adjustment of the mA and/or kV according to patient size, use of iterative reconstruction technique. RADIATION DOSE SUMMARY: CTDlvol: 50 mGy DLP: 2200.25 mGycm COMPARISON: None FINDINGS: Lung bases: Unremarkable Liver: Diffuse fatty infiltration. Gallbladder: Unremarkable Spleen: Borderline splenomegaly. Pancreas: Normal size without evidence of mass surrounding inflammation or ductal dilation. Adrenals: Unremarkable Kidneys: Normal renal sizes. No hydronephrosis. Bladder: Unremarkable. Bowel: No bowel obstruction. Appendix: Unremarkable Lymph nodes: Unremarkable Vasculature: The abdominal aorta and IVC are normal. Peritoneum / Retroperitoneum: Small retroperitoneal lymph nodes. Bones: Loss of the normal lumbar lordosis. CT/Abdomen/Pelvis W IV Cont ONLY IMPRESSION: Diffuse fatty infiltration of the liver. Borderline splenomegaly. Reading Location: [place] [address] CC: CLAUDIA Chavezen Rolan, ~ [employer] [place] [employer] Operator: Signed [facility] 06-16-2024 Note OFFICE VISIT REASON FOR VISIT Hemorrhoids Subjective Patient states that for just about 1 year he has had hemorrhoids and bleeding. About 6 months ago he was in [place] and saw a colorectal surgeon that wanted to do surgery. Due to financial issues, the surgery was not performed. He continues to have bleeding with and without BM's. Not a lot but does soak through his clothes when he is at work. He tried taking Metamucil but just got constipated with this. He uses dry toilet paper to clean himself after a BM. He does not take a stool softener. Vitals BP (!) 144/90 Pulse 91 Resp 14 Ht 5' 11 Wt (!) 176.9 kg (390 lb) SpO2 96% BMI 54.39 kg/m Exam Alert, NAD, cooperative, gait normal Morbidly obese Rectal: small anal fissure at 6:00 prone position. No external hemorrhoids. Labs, Imaging, Pathology Assessment / Plan / Follow-up Internal hemorrhoids with bleeding, anal fissure. Went over our paper regarding non-surgical management: MEDICAL TREATMENT OF HEMORRHOIDS THIS IS SUCCESSFUL 80-90% OF THE TIME. RESULTS ARE NOT IMMEDIATE. BE PATIENT. IT MAY TAKE UP TO 2 WEEKS TO SEE RESULTS. IF THIS IS NOT SUCCESSFUL, YOU MAY NEED SURGERY. FLUID AND FIBER ARE VERY IMPORTANT: Drink 64 ounces of fluid (water, soda, milk, Gatorade, and fruit juices) per day. Not just water. Consider getting a sports water bottle to be able to gauge how much fluids you are drinking. Take a fiber supplement once a day. Metamucil powder is recommended. Mix one scoop in a tall glass of water once a day every day. You may increase the fiber to two times per day if needed. HYGIENE IS ALSO IMPORTANT: AVOID using dry toilet paper to wipe after a BM. Use baby wipes or a moistened toilet paper to dab. Consider investing in a Bidet toilet that uses water to clean your bottom - it is much gentler than using dry toilet paper. OTHER THINGS YOU CAN DO: Sitz baths with Epson salts 2-3 times a day for 20 minutes each time for rectal discomfort. DO NOT strain to have a bowel movement for more than 5 minutes at a time. NO SUPPOSITORIES - they usually irritate hemorrhoids when pushed into the rectum. Use Preparation H gel or Tucks medicated pads for rectal discomfort. AVOID TOMATOES, CHOCOLATES, AND CAFFEINE. At your own discretion, consider taking an [id number]-wwonjit stool softener twice a day. I want him to try this for 1 month and went over these instructions in detail with him. He understood. F/u in 1 month to see how effective this was. AUTHENTICATED BY BENNY TYSON, ON 06/16/2024 14:04:43 [facility] 06-16-2024 History of Present illness Narrative OFFICE VISIT REASON FOR VISIT Hemorrhoids Subjective Patient states that for just about 1 year he has had hemorrhoids and bleeding. About 6 months ago he was in [place] and saw a colorectal surgeon that wanted to do surgery. Due to financial issues, the surgery was not performed. He continues to have bleeding with and without BM's. Not a lot but does soak through his clothes when he is at work. He tried taking Metamucil but just got constipated with this. He uses dry toilet paper to clean himself after a BM. He does not take a stool softener. Vitals BP (!) 144/90 Pulse 91 Resp 14 Ht 5' 11 Wt (!) 176.9 kg (390 lb) SpO2 96% BMI 54.39 kg/m Exam Alert, NAD, cooperative, gait normal Morbidly obese Rectal: small anal fissure at 6:00 prone position. No external hemorrhoids. Labs, Imaging, Pathology Assessment / Plan / Follow-up Internal hemorrhoids with bleeding, anal fissure. Went over our paper regarding non-surgical management: MEDICAL TREATMENT OF HEMORRHOIDS THIS IS SUCCESSFUL 80-90% OF THE TIME. RESULTS ARE NOT IMMEDIATE. BE PATIENT. IT MAY TAKE UP TO 2 WEEKS TO SEE RESULTS. IF THIS IS NOT SUCCESSFUL, YOU MAY NEED SURGERY. FLUID AND FIBER ARE VERY IMPORTANT: Drink 64 ounces of fluid (water, soda, milk, Gatorade, and fruit juices) per day. Not just water. Consider getting a sports water bottle to be able to gauge how much fluids you are drinking. Take a fiber supplement once a day. Metamucil powder is recommended. Mix one scoop in a tall glass of water once a day every day. You may increase the fiber to two times per day if needed. HYGIENE IS ALSO IMPORTANT: AVOID using dry toilet paper to wipe after a BM. Use baby wipes or a moistened toilet paper to dab. Consider investing in a Bidet toilet that uses water to clean your bottom - it is much gentler than using dry toilet paper. OTHER THINGS YOU CAN DO: Sitz baths with Epson salts 2-3 times a day for 20 minutes each time for rectal discomfort. DO NOT strain to have a bowel movement for more than 5 minutes at a time. NO SUPPOSITORIES - they usually irritate hemorrhoids when pushed into the rectum. Use Preparation H gel or Tucks medicated pads for rectal discomfort. AVOID TOMATOES, CHOCOLATES, AND CAFFEINE. At your own discretion, consider taking an [id number]-sfidtej stool softener twice a day. I want him to try this for 1 month and went over these instructions in detail with him. He understood. F/u in 1 month to see how effective this was. documented in this encounter [facility] 04-29-2024 Evaluation note Diagnosis Onset Date Resolution Lumbar strain acute April 10:46am [facility] Work Phone: Evaluation note* Diagnosis Internal hemorrhoids- Primary Internal hemorrhoids without mention of complication [facility] Other hemorrhoids- Primary [facility] Diagnosis Well adult exam- Primary Routine general medical examination at a health care facility Type 2 diabetes mellitus without complication, without long-term current use of insulin ([facility]) B12 deficiency Primary hypertension Unspecified essential hypertension Hemorrhoids, unspecified hemorrhoid type Sebaceous cyst Morbid obesity with body mass index (BMI) of 40.0 or higher ([facility]) [facility] Additional Instructions Plenty clear fluids and Gatorade etc. Use Zofran as needed for nausea and vomiting. If your symptoms worsen and you cannot keep down your medications or you develop worsening abdominal pain or blood in your diarrhea please come back to the emergency room for reevaluation. [facility] Work Phone: Hospital Discharge instructions Additional Instructions Take the antibiotics until finished.[facility] Work Phone: Chief Complaint and Reason for Visit Chief Complaint Admit Date SCIATICA April 29, 2024 1 0:46am ABD PAIN July 18, 2024 11: 37am Reason for Visit Admit Date Lumbar strain April 29, 2024 1 0:46am Chief Complaint Admit Date SCIATICA April 29, 2024 1 0:46am ABD PAIN July 18, 2024 11: 37am Gu complaint July 22, 2024 10: 41am Advance Directives No Advanced Directives Records Found Advance Directive Response Recorded Date/ Time Living Will No July 18, 2024 11:37am Do you have a Healthcare Power of [employer]? No July 18, 2024 11:37am Advance Directive Response Recorded Date/ Time Living Will No July 22, 2024 11:37am Do you have a Healthcare Power of [employer]? No July 22, 2024 11:37am Living Will No July 18, 2024 11:37am Do you have a Healthcare Power of [employer]? No July 18, 2024 11:37am Summary Purpose Family History No Family History Records FoundNo Family History Records Found Additional Source Comments Care Teams (unrecognized sec tion and content) Orchard Manager Relationship Specialty Start Date End Date Chele Gongora DO [address] [facility] [address] [place] [address] PCP - General Family Medicine 06/08/24 Chele Gongora DO [address] [facility] [address] [place] [address] Referring Physician Family Medicine 06/08/24 Orchard Manager Relationship Specialty Start Date End Date Chele Gongora DO [address] [facility] [address] [place], [place] [address] PCP - General Family Medicine 06/08/24 Chele Gongora DO [address] [facility] [address] [place], [place] [phone] Referring Physician Family Medicine 06/08/24 Team Status: Active Member Role Status Dates Analilia SANTOS, DO Primary Care Provider Active Team Status: Inactive Member Role Status Dates Andrew Yanez PA, PA Attending Provider Active Start: April 29, 2024 End: April 29, 2024 Team Status: Inactive Member Role Status Dates Dr. Steven Maradiaga DO Emergency Provider Active Start: July 18, 2024 End: July 18, 2024 Analilia SYLVESTER, DO Primary Care Provider Active Start: July 18, 2024 End: July 18, 2024 Team Status: Inactive Member Role Status Dates Analilia SANTOS, DO Primary Care Provider Active Start: July 22, 2024 End: July 22, 2024 Dr. Steven Maradiaga DO Emergency Provider Active Start: July 22, 2024 End: July 22, 2024 Orchard Manager Relationship Specialty Start Date End Date George Smith DO [facility] [place] [address] PCP - General Family Medicine 11/17/24 Chele Gongora DO [address] [facility] [address] [place] [address] Referring Physician Family Medicine 06/08/24 Reason for Visit (unrecogniz ed section and content) Reason Comments Consult hemorrhoids Specialty Diagnoses / Procedures Referred By Kal t Referred To Contact General Surgery Diagnoses Internal hemorrhoids Chele Gongora DO [address] [place] [address] Phone: tel: fax: [facility] [address] [place] [address] Office Building, [address] [place] [address] Phone: tel: fax: Referral ID Status Reason Start Date Expiration Date Visits Requested Visits Authorized [id number] Pending Review Specialty Services Required/Pat ient's Best Interest 06/08/2024 06/08/2025 1 1 Reason Comments Establish Care Pt here to establish care. Goals (unrecognized section and content) Goals may be documented in a n alternate sectionGoals may be documented in an alternate section (unrecognized sect ion and content) No Status Records FoundNo Status Records Found INFORMATION SOURCE (unrecogn ized section and content) DATE CREATED AUTHOR 07/30/2024 [facility] DATE CREATED AUTHOR AUTHOR'S EYAL REYES 11/23/2024 [facility] FOR RECORDS PERTAINING TO PATIENTS WHO ARE OR HAVE BEEN ENROLLED IN A CHEMICAL DEPENDENCY/SUBSTANCEABUSE PROGRAM, SOME INFORMATION MAY BE OMITTED. This clinical summary was aggregated from multiple sources. Caution should be exercised in using it in the provision of clinical care. This summary normalizes information from multiple sources, and as a consequence, information in this document may materially change the coding, format and clinical context of patient data. In addition, data may be omitted in some cases. CLINICAL DECISIONS SHOULD BE BASED ON THE PRIMARY CLINICAL RECORDS. [facility] [employer] [facility]. provides no warranty or guarantee of the accuracy or completeness of information in this document.
[2024-11-27 21:45] VITALS: BMI 53.1
[2024-11-27 21:48] VITALS: BP 146/81; PULSE 94; RESP 18; TEMP 36.6; O2SAT 98; BMI 52.9
[2024-11-27] MEDS: 0.9% Normal Saline (1000mL) 1,000 ML 100 ML IV (22:13)
[2024-11-28 03:00] VITALS: BP 146/82; PULSE 77; RESP 16; TEMP 37.2; O2SAT 95
[2024-11-28 04:29] VITALS: BMI 52.9
[2024-11-28 05:51] LABS: Hematocrit 40.4 % (40-54); Hemoglobin 13.3 g/dL (13.0-16.5); Immature Granulocytes Count 0.010 X10^3/uL (0.0-0.0); Mean Corp Hgb Conc 32.9 g/dL (32-36); Mean Corpuscular Volume 83.6 fL (80-94); Mean Platelet Vol. 9.0 fl (6.2-12.0); NRBC Flagged by Analyzer 0 % (0-5); Platelet Count 319 K/mm3 (150-450); RBC Distribution Width CV 13.1 % (11.6-14.6); RBC Distribution Width SD 39.9 fl (35.1-43.9); Red Blood Count 4.83 M/mm3 (4.6-6.2); White Blood Count 10.1 K/mm3 (4.4-11.0)
--- NOTE | 2024-11-28 05:55 | MRI_ITS ---
PROCEDURE: SPINE LUMBAR (ROUTINE) 11/28/2024 REASON FOR EXAM: BACK PAIN, RADICULOPATHY TECHNIQUE: SPINE LUMBAR (ROUTINE) COMPARISON: 11/27/2024 CT FINDINGS: Vertebrae: There are 5 lumbar type vertebral bodies. Shortened pedicles result in congenital narrowing of the spinal canal at L5-S1. Alignment: Straightening of the cervical lordosis. Conus Medullaris: Terminates at the T12-L1 level T12-L1: Left paracentral disc bulge indents the left lateral surface of conus medullaris and effaces left lateral recess. Series 12, image 33. Left neural foraminal narrowing. Right neural foramen is patent. L1-2: Mild diffuse disc bulge and facet arthropathy. No significant spinal canal stenosis. Mild bilateral neural foraminal narrowing. L2-3: Mild diffuse disc bulge and facet arthropathy. No significant spinal canal stenosis. Mild bilateral neural foraminal narrowing. L3-4: Mild diffuse disc bulge. Bilateral facet arthropathy. No significant spinal canal stenosis. Moderate bilateral neural foraminal narrowing. L4-5: Focal right paracentral disc bulge series 12, image 11. Tiny annular fissure at the posterior aspect of the disc. There is resultant effacement of right lateral recess, likely mass effect on the intradural right L5 nerve. Moderate to severe bilateral neural foraminal narrowing. L5-S1: Focal central disc protrusion, bilateral facet arthropathy. Moderate neural foraminal narrowing bilaterally. Sacrum: Within normal limits Partially visualized posterior disc bulge at T8-T9 and T9-T10. MRI/Spine Lumbar (Routine) IMPRESSION: 1. Focal disc protrusions at L4-L5 and L5-S1. Likely some degree of mass effec t on the intradural right L5 nerve at L4-L5 level. See above for details. 2. Left paracentral disc protrusion at T12-L1, indents left lateral margin of c onus medullaris. 3. Partially visualized disc bulge at T8-T9 and T9-T10. 4. 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 Reading Location: [id number]
[2024-11-28 08:17] VITALS: BP 135/71; PULSE 65; RESP 18; TEMP 36.7; O2SAT 98
[2024-11-28] MEDS: Lidocaine 5% Patch 2 PATCH TOPICAL (08:25)
[2024-11-28 08:49] LABS: AST(SGOT) 36 U/L (<=37); Alanine Aminotransfer ALT/SGPT 63 U/L (<=46); Albumin, Serum 3.9 g/dL (3.5-5.0); Alkaline Phosphatase 61 U/L (40-129); Anion Gap 13 (5-15); BUN 9 mg/dL (4-19); BUN/Creat Ratio 12.6 RATIO (10-20); Calcium,Total 8.9 mg/dL (7.6-11.0); Carbon Dioxide 24.5 mmol/L (21.0-32.0); Chloride 103 mmol/L (98-108); Estimated Creatinine Clearance 247.84 ml/min (50-250); Globulin 2.9 g/dL (2.2-4.2); Glucose 124 mg/dL (70-99); Potassium 3.7 mmol/L (3.3-5.1)
--- NOTE | 2024-11-28 10:54 | CASEMGMT ---
KAI THOMAS Assessment Face to Face with patient for initial transition planning/care coordination assessment. KAI THOMAS introduced self and role at [facility], pt voices understanding. Pt is A&Ox4 and is resting comfortably in bed and is calm. Care providers, pharmacy, and demographics verified. Admitting dx: Intractable Back Pain, Severe Spinal Stenosis LACE Strata: 2 PCP: George Renteria Specialists: Denies Preferred Pharmacy: [facility] Insurance: MMO Prescription Benefit: Yes LNOK: [place] (Mother and Father) Living Arrangements: Pt lives alone in a ground level apartment with a flat entrance ADLs/IADLs: Pt reports that he is indep at baseline but is currently having back pain. MRI is pending. Current 6-Click score is 24 and PT is ordered and pending. Pt states that he would be interested in OP therapy. Pt reports that he can schedule the appt himself with his FOC. Green sheet placed on the chart to facilitate potential weekend DC. Transportation: Self, parents DME: [employer] with sufficient supplies. Denies further DME uses or needs at this time HHC/SNF: denies hx or needs Pt?s goal: Home Plan: Anticipate DC home with OP Tx once medically ready. MRI and PT are pending. Pt states that he feels safe with this plan and denies further questions or concerns at this time. Jim Roberts RN, CM
--- NOTE | 2024-11-28 13:00 | CONS.ORTHO ---
HPI Consult Data Date of Consult: 11/28/24 HPI Narrative HPI Narrative: YURIY DUMONT, is a 29 M who presents with severe debilitating low back pain with radiation to right buttock and hamstrings. He was admitted last night for pain control. He is in the PCU for monitoring. I saw him today in the PCU this morning. He has had a similar episode of low back pain with right buttock pain about 6 months ago which improved with medications in a day or 2. 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 After work on evening he started having severe pain which worsened enough for him to come to the ER yesterday. He was admitted for pain control. He denies any radiation below the knee. He denies any tingling numbness into the leg or foot. He has not had any physical therapy or injections. He has not had any back symptoms before the episode 6 months ago. He is a known diabetic and mentions that his A1c was around mid sevens measured about 2 weeks ago at an outside facility, report not available. His BMI is 53. He has not had any steroids yet. PMHx: Obesity, HTN, Diabetes mellitus type II, Hypothyroidism, Allergic rhinitis, Hypothyroidism, GERD [facility] Medical History Second hand tobacco smoke exposure Morbid obesity GERD (gastroesophageal reflux disease) Allergic rhinitis Hypothyroidism Diabetes mellitus, type 2 HTN (hypertension) Home Medications ?Medication ?Instructions ?Recorded ?Last Taken ?Type fexofenadine 60 mg capsule 90 mg PO Q24H 04/29/24 Unknown History folic acid 1 mg tablet 1 mg PO QDAY 04/29/24 Unknown History mecobalamin (vitamin B12) 500 mcg 2,000 mcg PO DAILY 04/29/24 Unknown History chewable tablet amlodipine 10 mg tablet 10 mg PO DAILY 11/27/24 Unknown History echinacea 380 mg capsule 760 mg PO DAILY 11/27/24 Unknown History levothyroxine 50 mcg tablet 50 mcg PO DAILY 11/27/24 Unknown History lisinopril 20 mg tablet 20 mg PO DAILY 11/27/24 Unknown History metformin 500 mg tablet,extended 500 mg PO DAILY 11/27/24 Unknown History release 24 hr omeprazole 40 mg capsule,delayed 40 mg PO DAILY 11/27/24 Unknown History release Allergy/AdvReac Type Severity Reaction Status Date / Time carbinoxamine (From [facility]) Allergy SOB Verified 11/27/24 15:40 chlorpheniramine (From Allergy SOB Verified 11/27/24 15:40 [facility] (phenylephrin-chlorphn)) codeine Allergy irritabilit Verified 11/27/24 15:40 y phenylephrine (From [facility] Allergy SOB Verified 11/27/24 15:40 (phenylephrin-chlorphn)) pseudoephedrine (From [facility]) Allergy SOB Verified 11/27/24 15:40 Seasonal Allergies: Uncoded Allergy Other Verified 11/27/24 15:40 Family History (Updated 11/27/24 @ 21:[address] Anastasiia Chapman MD) Mother JANN (obstructive sleep apnea) Heart disease Hypertension CAD (coronary artery disease) Diabetes Father JANN (obstructive sleep apnea) Hypertension Diabetes Surgical History S/P tonsillectomy and adenoidectomy Status post myringotomy with tube placement of both ears Social History (Updated 11/27/24 @ 21:[address] Anastasiia Chapman MD) household members: none Smoking Status: Never smoker alcohol intake: current alcohol intake frequency: holidays/special occasions only substance use type: does not use Vital Signs Vital Signs Vital Signs: 11/27/24 17:10 11/27/24 20:02 11/27/24 21:00 Temperature 98 F Temperature Source Pulse Rate 82 82 77 Pulse Strength Respiratory Rate 16 16 18 Respiratory Effort Respiratory Depth Respiratory Pattern Blood Pressure 170/91 H 170/91 H Blood Pressure Mean 117 117 Blood Pressure Source Blood Pressure Position Blood Pressure Location Pulse Ox 99 99 97 Oxygen Delivery Method Room Air 11/27/24 21:48 11/27/24 22:00 11/27/24 23:30 Temperature 98 F Temperature Source Temporal Pulse Rate 94 Pulse Strength Respiratory Rate 18 Respiratory Effort Normal Respiratory Depth Normal Respiratory Pattern Normal Blood Pressure 146/81 H Blood Pressure Mean 102 Blood Pressure Source Monitor Blood Pressure Position Semi-Fowlers Blood Pressure Location Right Arm Pulse Ox 98 Oxygen Delivery Method Room Air Room Air Room Air 11/28/24 03:00 11/28/24 03:00 11/28/24 07:32 Temperature 98.9 F Temperature Source Oral Pulse Rate 77 Pulse Strength Normal (2+) Respiratory Rate 16 Respiratory Effort Normal Respiratory Depth Normal Respiratory Pattern Normal Blood Pressure 146/82 H Blood Pressure Mean 103 Blood Pressure Source Monitor Blood Pressure Position Semi-Fowlers Blood Pressure Location Right Forearm Pulse Ox 95 Oxygen Delivery Method Room Air Room Air 11/28/24 07:52 11/28/24 08:17 11/28/24 09:39 Temperature 98.0 F Temperature Source Oral Pulse Rate 65 Pulse Strength Respiratory Rate 18 Respiratory Effort Normal Non-Labored Respiratory Depth Normal Respiratory Pattern Normal Blood Pressure 135/71 H Blood Pressure Mean 92 Blood Pressure Source Monitor Blood Pressure Position Semi-Fowlers Blood Pressure Location Right Arm Pulse Ox 98 Oxygen Delivery Method Room Air Room Air Room Air Weight Weight: 380 lb 1.231 oz Body Mass Index (BMI) 52.9 Physical Exam Narrative Examination back shows lidocaine patch in the right lumbar lower paraspinal region. Tenderness in the midline and right paraspinal region in this area. Mild tenderness for the left paraspinal area in this area also noticed in the lower lumbar region. Neurologic valuation of lower extremities shows 5 x 5 power in all muscle groups. Passive straight leg raise test is positive on both sides. Lab / Micro Data 11/28/24 05:38 11/28/24 05:38 Labs: Laboratory Results - last 24 hr 11/27/24 18:04: WBC 9.0, RBC 5.61, Hgb 15.3, Hct 46.5, MCV 82.9, MCH 27.3, MCHC 32.9, RDW Std Deviation 39.2, RDW Coeff of Karl 13.2, Plt Count 363, MPV 8.9, Immature Gran % (Auto) 0.200, Neut % (Auto) 63.4, Lymph % (Auto) 30.0, Cloud % (Auto) 4.7, Eos % (Auto) 1.0, Baso % (Auto) 0.7, Absolute Neuts (auto) 5.7, Absolute Lymphs (auto) 2.69, Nucleated RBC % 0, Sodium 139, Potassium 4.3, Chloride 101, Carbon Dioxide 22.3, Anion Gap 16 H, BUN 8, Creatinine 0.69 L, Est GFR (MDRD) Non-Af 128, BUN/Creatinine Ratio 11.6, Glucose 117 H, Calcium 9.5 11/27/24 22:23: POC Glucose 108 H 11/28/24 05:38: WBC 10.1, RBC 4.83, Hgb 13.3, Hct 40.4, MCV 83.6, MCH 27.5, MCHC 32.9, RDW Std Deviation 39.9, RDW Coeff of Karl 13.1, Plt Count 319, MPV 9.0, Immature Gran % (Auto) 0.100, Neut % (Auto) 56.3, Lymph % (Auto) 35.2, Cloud % (Auto) 6.5, Eos % (Auto) 1.4, Baso % (Auto) 0.5, Absolute Neuts (auto) 5.7, Absolute Lymphs (auto) 3.57, Nucleated RBC % 0, Sodium 140, Potassium 3.7, Chloride 103, Carbon Dioxide 24.5, Anion Gap 13, BUN 9, Creatinine 0.71, Estim Creat Clear Calc 247.84, Est GFR (MDRD) Non-Af 127, BUN/Creatinine Ratio 12.6, Glucose 124 H, Calcium 8.9, Total Bilirubin 0.57, AST 36, ALT 63 H, Alkaline Phosphatase 61, Total Protein 6.8, Albumin 3.9, Globulin 2.9, Albumin/Globulin Ratio 1.3 11/28/24 06:15: POC Glucose 126 H 11/28/24 11:03: POC Glucose 127 H Imaging Radiology Impression Lumbar Spine CT 11/27/24 17:51 IMPRESSION: Degenerate changes on background of 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 The remainder levels show moderate canal stenoses. Reading Location: [facility] Assessment & Plan Assessment/Plan (1) Lumbar radiculopathy: (2) Congenital stenosis of lumbar spine: (3) Intractable back pain: PLAN: Plan Reviewed patient's CT of lumbar spine done yesterday in the ER. MRI is pending. CT shows congenital bony canal narrowing with multilevel disc bulges with moderate stenosis, however discogenic stenosis cannot be evaluated well on CT. Explained to the patient the current imaging findings. Patient has severe radiculopathy which worsens significantly with any mobility around the lower back. Explained to him that the MRI will help identify the source of his current radiculopathy and mechanical pain and will rule out infection. Once infection is ruled out, patient may be treated with IV versus oral steroids. Due to his current diabetes, A1c would need to be checked and he may need to be on insulin for short-term while on steroids. He may be evaluated by pain management for consideration of epidural injections during this admission or as an outpatient. Once MRI is complete, if there is no surgical intervention required at an acute stage, patient may follow-up with me as an outpatient. Patient was in agreement. Charges/Coding Visit Charges Inpatient E&M: 03157 Init Hosp L3
--- NOTE | 2024-11-28 14:17 | PN_ITS ---
Subjective Subjective Patient seen and examined with his nurse by his bedside. He was admitted with a complaint of lower back pain and is being managed for lumbar spine stenosis with radiculopathy. He still complains of the lower back pain. He denies any urinary or fecal incontinence. Review of systems is otherwise negative. Objective Data Objective Data Vital Signs: Vital Signs Temp Pulse Resp BP Pulse Ox O2 Del Method 98.0 F 65 18 135/71 H 98 Room Air 11/28/24 08:17 11/28/24 08:17 11/28/24 08:17 11/28/24 08:17 11/28/24 08:17 11/28/24 09:39 Oxygen Delivery Method Room Air Weight: 380 lb 1.231 oz Body Mass Index (BMI) 52.9 Intake & Output: Intake and Output for Last 24 Hours 11/26/24 11/27/24 11/28/24 23:59 23:59 23:59 Intake Total 1840 / 1840 Output Total 400 / 400 Balance 1440 / 1440 Lab / Micro Data 11/28/24 05:38 11/28/24 05:38 Labs: Laboratory Results - last 24 hr 11/27/24 18:04: WBC 9.0, RBC 5.61, Hgb 15.3, Hct 46.5, MCV 82.9, MCH 27.3, MCHC 32.9, RDW Std Deviation 39.2, RDW Coeff of Karl 13.2, Plt Count 363, MPV 8.9, Immature Gran % (Auto) 0.200, Neut % (Auto) 63.4, Lymph % (Auto) 30.0, [place] % (Auto) 4.7, Eos % (Auto) 1.0, Baso % (Auto) 0.7, Absolute Neuts (auto) 5.7, Absolute Lymphs (auto) 2.69, Nucleated RBC % 0, Sodium 139, Potassium 4.3, Chloride 101, Carbon Dioxide 22.3, Anion Gap 16 H, BUN 8, Creatinine 0.69 L, Est GFR (MDRD) Non-Af 128, BUN/Creatinine Ratio 11.6, Glucose 117 H, Calcium 9.5 11/27/24 22:23: POC Glucose 108 H 11/28/24 05:38: WBC 10.1, RBC 4.83, Hgb 13.3, Hct 40.4, MCV 83.6, MCH 27.5, MCHC 32.9, RDW Std Deviation 39.9, RDW Coeff of Karl 13.1, Plt Count 319, MPV 9.0, Immature Gran % (Auto) 0.100, Neut % (Auto) 56.3, Lymph % (Auto) 35.2, [place] % (Auto) 6.5, Eos % (Auto) 1.4, Baso % (Auto) 0.5, Absolute Neuts (auto) 5.7, Absolute Lymphs (auto) 3.57, Nucleated RBC % 0, Sodium 140, Potassium 3.7, Chloride 103, Carbon Dioxide 24.5, Anion Gap 13, BUN 9, Creatinine 0.71, Estim Creat Clear Calc 247.84, Est GFR (MDRD) Non-Af 127, BUN/Creatinine Ratio 12.6, G lucose 124 H, Calcium 8.9, Total Bilirubin 0.57, AST 36, ALT 63 H, Alkaline Phosphatase 61, Total Protein 6.8, Albumin 3.9, Globulin 2.9, Albumin/Globulin Ratio 1.3 11/28/24 06:15: POC Glucose 126 H 11/28/24 11:03: POC Glucose 127 H Radiography Diagnostic Testing: Radiology Impression Lumbar Spine CT 11/27/24 17:51 IMPRESSION: Degenerate changes on background of 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 The remainder levels show moderate canal stenoses. Reading Location: [facility] Physical Exam Const alert, oriented x3 and no apparent distress Constitutional Narrative: class III obesity, BMI is 53. General Appearance: cooperative HEENT normocephalic, head/scalp atraumatic, moist oral mucous membranes and oropharynx normal Eyes EOMs intact bilaterally Neck supple and no JVD Lymph Lymphatic: no lymphedema noted Resp normal respiratory effort, normal air movement and clear to auscultation bilaterally Cardio regular rate, regular rhythm, S1 normal heart sound, S2 normal heart sound and no murmurs GI normal to inspection, nondistended, normoactive bowel sounds, soft to palpation, non-tender and non-distended GI Narrative: obese abdomen. Organomegaly difficult to palpate in light of abdominal obesity. Extremity normal capillary refill, no clubbing, cyanosis or edema and no calf tenderness General Extremity: no tenderness to palpation of joints or extremities Skin General Skin Exam: no breakdown Neuro no focal motor deficits and no sensory deficits noted Neuro Narrative: straight leg raising test negative bilaterally. Motor Exam: general weakness Psych thought process normal, cooperative and affect normal Appearance: appropriate Assessment & Plan Assessment/Plan (1) Lumbar radiculopathy: (2) Lumbar stenosis: PLAN: Plan #Intractable low back pain due to congenital narrowing of the spinal canal with resultant severe foraminal and lumbar stenosis * Imaging done showed severe left and moderate right foraminal stenosis of L5-S1 with congenital narrowing and facet joint arthropathy and severe narrowing of the thecal sac * MRI of the lumbar spine ordered. On IV Toradol, lidocaine patch and tizanidine as well as p.o. oxycodone and IV morphine as needed * And IV Zofran and bowel regimen also. * Orthospine consulted. * PT OT on board. Fall precautions. Patient counseled that the first-line for treatment will be physical therapy and pain meds and if those do not work that he could have back injections. * By orthospine started on IV steroids once infection is ruled out with MRI. * #Type 2 diabetes mellitus: On insulin sliding scale. Accu-Cheks ACHS. Check A1c #Hypertension: On amlodipine and lisinopril. IV hydralazine as needed #Hypothyroidism: On Synthroid #GERD: On PPI #DVT prophylaxis: SCDs Charges/Coding Visit Charges Inpatient E&M: 53085 Subs Hosp L2
[2024-11-28 15:00] VITALS: BP 136/81; PULSE 68; RESP 18; TEMP 36.2; O2SAT 96
[2024-11-28 21:57] VITALS: BP 146/71; PULSE 81; RESP 16; TEMP 36.7; O2SAT 97
[2024-11-28] MEDS: 0.9% Saline Lock 10 ML Syringe IV (22:00)
[2024-11-29 03:36] VITALS: BMI 52.7
[2024-11-29 03:48] VITALS: BP 117/55; PULSE 79; RESP 16; TEMP 36.8; O2SAT 95
[2024-11-29] MEDS: 0.9% Saline Lock 10 ML Syringe IV ×3 (06:22→21:16)
[2024-11-29 07:18] LABS: Hematocrit 41.0 % (40-54); Hemoglobin 13.6 g/dL (13.0-16.5); Immature Granulocytes Count 0.020 X10^3/uL (0.0-0.0); Mean Corp Hgb Conc 33.2 g/dL (32-36); Mean Corpuscular Volume 84.4 fL (80-94); Mean Platelet Vol. 9.1 fl (6.2-12.0); NRBC Flagged by Analyzer 0 % (0-5); Platelet Count 305 K/mm3 (150-450); RBC Distribution Width CV 13.2 % (11.6-14.6); RBC Distribution Width SD 40.2 fl (35.1-43.9); Red Blood Count 4.86 M/mm3 (4.6-6.2); White Blood Count 9.7 K/mm3 (4.4-11.0)
[2024-11-29 07:42] LABS: Anion Gap 12 (5-15); BUN 12 mg/dL (4-19); BUN/Creat Ratio 12.9 RATIO (10-20); Calcium,Total 9.1 mg/dL (7.6-11.0); Carbon Dioxide 23.6 mmol/L (21.0-32.0); Chloride 108 mmol/L (98-108); Estimated Creatinine Clearance 197.16 ml/min (50-250); Glucose 203 mg/dL (70-99); Potassium 3.9 mmol/L (3.3-5.1)
[2024-11-29 08:29] VITALS: BP 149/86; PULSE 81; RESP 18; TEMP 36.6; O2SAT 96
[2024-11-29] MEDS: Lidocaine 5% Patch 2 PATCH TOPICAL (08:31)
--- NOTE | 2024-11-29 11:58 | PN_ITS ---
Subjective Subjective Patient seen and examined with his nurse by his bedside. He still complained of the back pain but said it was a bit better today. Review of systems is otherwise negative. Objective Data Objective Data Vital Signs: Vital Signs Temp Pulse Resp BP Pulse Ox O2 Del Method 97.8 F 81 18 149/86 H 96 Room Air 11/29/24 08:29 11/29/24 08:29 11/29/24 08:29 11/29/24 08:29 11/29/24 08:29 11/29/24 08:29 Oxygen Delivery Method Room Air Weight: 378 lb 5.012 oz Body Mass Index (BMI) 52.7 Intake & Output: Intake and Output for Last 24 Hours 11/27/24 11/28/24 11/29/24 23:59 23:59 23:59 Intake Total 2240 / 2600 860 / 860 Output Total 900 / 1450 550 / 550 Balance 1340 / 1150 310 / 310 Lab / Micro Data 11/29/24 07:00 11/29/24 07:00 Labs: Laboratory Results - last 24 hr 11/28/24 05:38: Hemoglobin A1c 7.3 H 11/28/24 16:17: POC Glucose 118 H 11/28/24 21:59: POC Glucose 147 H 11/29/24 06:21: POC Glucose 187 H 11/29/24 07:00: WBC 9.7, RBC 4.86, Hgb 13.6, Hct 41.0, MCV 84.4, MCH 28.0, MCHC 33.2, RDW Std Deviation 40.2, RDW Coeff of Karl 13.2, Plt Count 305, MPV 9.1, Immature Gran % (Auto) 0.200, Neut % (Auto) 61.6, Lymph % (Auto) 30.1, [place] % (Auto) 6.0, Eos % (Auto) 1.7, Baso % (Auto) 0.4, Absolute Neuts (auto) 6.0, Absolute Lymphs (auto) 2.91, Nucleated RBC % 0, Sodium 144, Potassium 3.9, Chloride 108, Carbon Dioxide 23.6, Anion Gap 12, BUN 12, Creatinine 0.89, Estim Creat Clear Calc 197.16, Est GFR (MDRD) Non-Af 119, BUN/Creatinine Ratio 12.9, G lucose 203 H, Calcium 9.1 11/29/24 11:12: POC Glucose 150 H Radiography Diagnostic Testing: Radiology Impression Lumbar Spine MRI 11/28/24 05:55 IMPRESSION: 1. Focal disc protrusions at L4-L5 and L5-S1. Likely some degree of mass effect on the intradural right L5 nerve at L4-L5 level. See above for details. 2. Left paracentral disc protrusion at T12-L1, indents left lateral margin of conus medullaris. 3. Partially visualized disc bulge at T8-T9 and T9-T10. 4. 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 Reading Location: [id number] Physical Exam Const alert, oriented x3 and no apparent distress Constitutional Narrative: class III obesity, BMI is 53. General Appearance: cooperative HEENT normocephalic, head/scalp atraumatic, moist oral mucous membranes and oropharynx normal Eyes EOMs intact bilaterally Neck supple and no JVD Lymph Lymphatic: no lymphedema noted Resp normal respiratory effort, normal air movement and clear to auscultation bilaterally Cardio regular rate, regular rhythm, S1 normal heart sound, S2 normal heart sound and no murmurs GI normal to inspection, nondistended, normoactive bowel sounds, soft to palpation, non-tender and non-distended GI Narrative: obese abdomen. Organomegaly difficult to palpate in light of abdominal obesity. Extremity normal capillary refill, no clubbing, cyanosis or edema and no calf tenderness General Extremity: no tenderness to palpation of joints or extremities Skin General Skin Exam: no breakdown Neuro no focal motor deficits and no sensory deficits noted Neuro Narrative: straight leg raising test negative bilaterally. Motor Exam: general weakness Psych thought process normal, cooperative and affect normal Appearance: appropriate Assessment & Plan Assessment/Plan (1) Lumbar radiculopathy: (2) Lumbar stenosis: PLAN: Plan #Intractable low back pain due to congenital narrowing of the spinal canal with resultant severe foraminal and lumbar stenosis * Imaging done showed severe left and moderate right foraminal stenosis of L5-S1 with congenital narrowing and facet joint arthropathy and severe narrowing of the thecal sac * MRI of the lumbar spine ordered. On IV Toradol, lidocaine patch and tizanidine as well as p.o. oxycodone and IV morphine as needed * And IV Zofran and bowel regimen also. * Orthospine on board and recommended IV/PO steroids and pain meds, and follow up on outpatient basis for consideration for back injections if pain is not controlled by conservative measures * MRI lumbar spine showed focal disc protrusions at L4-L5 and L5-S1 with some mass effect on the intradural right L5 nerve at L4-L5 and left paracentral disc protrusion at T12-L1 and partially visualized disc bulge at T8-T9 and T9- T10 as well as congenital narrowing of the spinal canal at L5-S1. * PT OT on board. Fall precautions. Patient counseled that the first-line for treatment will be physical therapy and pain meds and if those do not work that he could have back injections. * Will put on IV dexamethasone 4 mg every 8 hourly for 3 doses and then placed on Medrol Dosepak. * #Type 2 diabetes mellitus: On insulin sliding scale. Accu-Cheks ACHS. A1c 7.3. #Hypertension: On amlodipine and lisinopril. IV hydralazine as needed #Hypothyroidism: On Synthroid #GERD: On PPI #DVT prophylaxis: SCDs Disposition: Anticipate discharge over the next 1 to 2 days. Charges/Coding Visit Charges Inpatient E&M: 84551 Subs Hosp L2
[2024-11-29 15:30] VITALS: BP 152/76; PULSE 80; RESP 18; TEMP 36.5; O2SAT 95
[2024-11-29 21:10] VITALS: BP 143/74; PULSE 73; RESP 18; TEMP 36.3; O2SAT 96
[2024-11-30 02:10] VITALS: BP 127/66; PULSE 73; RESP 16; TEMP 36.5; O2SAT 96
[2024-11-30] MEDS: 0.9% Saline Lock 10 ML Syringe IV (02:18)
[2024-11-30 05:02] VITALS: BMI 53.3
[2024-11-30 05:59] LABS: Hematocrit 43.1 % (40-54); Hemoglobin 14.2 g/dL (13.0-16.5); Immature Granulocytes Count 0.050 X10^3/uL (0.0-0.0); Mean Corp Hgb Conc 32.9 g/dL (32-36); Mean Corpuscular Volume 83.2 fL (80-94); Mean Platelet Vol. 9.3 fl (6.2-12.0); NRBC Flagged by Analyzer 0 % (0-5); Platelet Count 350 K/mm3 (150-450); RBC Distribution Width CV 13.1 % (11.6-14.6); RBC Distribution Width SD 39.4 fl (35.1-43.9); Red Blood Count 5.18 M/mm3 (4.6-6.2); White Blood Count 10.6 K/mm3 (4.4-11.0)
[2024-11-30 06:20] VITALS: BP 126/63; PULSE 70; RESP 18; TEMP 36.6; O2SAT 95
[2024-11-30 06:32] LABS: Anion Gap 15 (5-15); BUN 11 mg/dL (4-19); BUN/Creat Ratio 15.7 RATIO (10-20); Calcium,Total 9.5 mg/dL (7.6-11.0); Carbon Dioxide 20.7 mmol/L (21.0-32.0); Chloride 103 mmol/L (98-108); Estimated Creatinine Clearance 263.65 ml/min (50-250); Glucose 150 mg/dL (70-99); Potassium 4.5 mmol/L (3.3-5.1)
[2024-11-30 09:53] VITALS: BP 119/67; PULSE 82; RESP 16; TEMP 36.4; O2SAT 98
[2024-11-30] MEDS: Lidocaine 5% Patch 2 PATCH TOPICAL (09:55)
--- NOTE | 2024-11-30 14:06 | DS.PCM_ITS ---
Providers Date of Admission: 11/27/24 Primary Care Physician: Dr. George Renteria, Consultations 11/27/24 21:50 Consult: Orthopedics Routine Consulting Provider: Kalpesh Hernández Reason for Consult: Lumbar back pain w/ radiculopathy EMERGENT Consult: No MD Notified: Yes Date Notified: 11/27/24 Time Notified: 21:12 Method of Notification: ED Physician Initiated Reason For Visit: INTRACTABLE BACK PAIN, SEVERE SPINAL CANAL STENOSI Diagnosis Discharge Diagnosis (1) Lumbar radiculopathy: Status: Acute Code(s): M54.16 - Radiculopathy, lumbar region (2) Lumbar stenosis: Status: Acute Code(s): M48.061 - Spinal stenosis, lumbar region without neurogenic claudication Medications at Discharge Home Medications fexofenadine 60 mg capsule 90 mg PO Q24H 04/29/24 folic acid 1 mg tablet 1 mg PO QDAY 04/29/24 mecobalamin (vitamin B12) 500 mcg chewable tablet 2,000 mcg PO DAILY 04/29/24 amlodipine 10 mg tablet 10 mg PO DAILY 11/27/24 echinacea 380 mg capsule 760 mg PO DAILY 11/27/24 levothyroxine 50 mcg tablet 50 mcg PO DAILY 11/27/24 lisinopril 20 mg tablet 20 mg PO DAILY 11/27/24 metformin 500 mg tablet,extended release 24 hr 500 mg PO DAILY 11/27/24 omeprazole 40 mg capsule,delayed release 40 mg PO DAILY 11/27/24 acetaminophen 500 mg capsule 1,000 mg (2 x 500 mg) PO Q8H PRN PRN pain #30 caps 11/30/24 ibuprofen 200 mg tablet 600 mg (3 x 200 mg) PO Q6H PRN pain #30 tabs 11/30/24 prednisone 20 mg tablet 40 mg (2 x 20 mg) PO DAILY #10 tabs 11/30/24 tizanidine 2 mg tablet 2 mg PO Q8H PRN PRN Muscle spasm/strain #20 tabs 11/30/24 Hospital Course Operations None Procedures None Summary of Care Provided Minutes Spent on Discharge: 28 Hospital Course: Patient presents with pain with pain down his right leg. Patient underwent an MRI showed focal disc protrusion at L4-L5 and L5-S1 with some degree of mass effect on the intradural right L5 nerve root. Patient was started on dexamethasone and feeling better. Patient was seen by Dr. Hernández of spine surgery recommend outpatient follow-up and no surgical intervention at this time. Weight / BMI Weight Weight: 173.5 kg Body Mass Index (BMI) 53.3 ABG / Lab / Microbiology Data 11/30/24 05:25 11/30/24 05:25 Laboratory: Laboratory Results - last 24 hr 11/29/24 16:18: POC Glucose 163 H 11/29/24 21:15: POC Glucose 155 H 11/30/24 05:25: WBC 10.6, RBC 5.18, Hgb 14.2, Hct 43.1, MCV 83.2, MCH 27.4, MCHC 32.9, RDW Std Deviation 39.4, RDW Coeff of Karl 13.1, Plt Count 350, MPV 9.3, Immature Gran % (Auto) 0.500, Neut % (Auto) 85.3 H, Lymph % (Auto) 12.6 L, [place] % (Auto) 1.4, Eos % (Auto) 0.0, Baso % (Auto) 0.2, Absolute Neuts (auto) 9.1 H, Absolute Lymphs (auto) 1.34, Nucleated RBC % 0, Sodium 139, Potassium 4.5, Chloride 103, Carbon Dioxide 20.7 L, Anion Gap 15, BUN 11, Creatinine 0.67 L, E stim Creat Clear Calc 263.65 H, Est GFR (MDRD) Non-Af 130, BUN/Creatinine Ratio 15.7, Glucose 150 H, Calcium 9.5 11/30/24 06:23: POC Glucose 177 H 11/30/24 11:57: POC Glucose 161 H D/C Instructions Return to work on: 12/03/24 DC O2, CPAP, BIPAP Needs Home O2 Discharge instructions: No Meaningful Use Info Meaningful Use Meaningful Use Diagnoses (Choose all that apply): None applicable Discharge Plan Admission Admit Date/Time: 11/27/24 19:58 Primary Reason for Your Visit: Back pain. Attending Provider: Severo Miller Primary Care Provider: George Renteria Consulting Providers: Kalpesh Hernández; Anastasiia Chapman; Lauren Titus Discharge Orders/Prescriptions Prescriptions: New tizanidine 2 mg Tablet 2 mg PO Q8H PRN PRN (Reason: Muscle spasm/strain) Qty: 20 0RF acetaminophen 500 mg capsule 1,000 mg PO Q8H PRN PRN (Reason: pain) Qty: 30 0RF ibuprofen 200 mg tablet 600 mg PO Q6H PRN (Reason: pain) Qty: 30 0RF prednisone 20 mg tablet 40 mg PO DAILY Qty: 10 0RF Continued fexofenadine 60 mg capsule 90 mg PO Q24H Rx Instructions: Unsure of dose folic acid 1 mg tablet 1 mg PO QDAY Rx Instructions: Unsure of dose mecobalamin (vitamin B12) 500 mcg tablet,chewable 2,000 mcg PO DAILY Rx Instructions: Unsure of dose amlodipine 10 mg tablet 10 mg PO DAILY lisinopril 20 mg tablet 20 mg PO DAILY omeprazole 40 mg capsule,delayed release(DR/EC) 40 mg PO DAILY levothyroxine 50 mcg tablet 50 mcg PO DAILY metformin 500 mg tablet extended release 24 hr 500 mg PO DAILY echinacea 380 mg capsule 760 mg PO DAILY Other Ambulatory Orders: Physical Therapy Evaluation (Routine) Location: None Selected Ordered By: Dr. Severo Miller Referrals / Follow Up: George Renteria DO [Primary Care Provider] - Within 2 Weeks Kalpesh Hernández MD [Med Staff - Active Staff] - Within 1 Month Disposition Disposition (needs filled in before D/C Order can be placed): Home, Self Care Charges/Coding Visit Charges Inpatient E&M: 88106 Disch Hosp
[2024-11-30 14:14] VITALS: BP 125/66; PULSE 63; RESP 16; TEMP 36.8; O2SAT 97
--- NOTE | 2024-11-30 16:08 | CHAPLAIN ---
Type of Pastoral Visit _x__ Initial Visit ___ Follow-up Visit ___ On-call Visit ___ General Patient Visit ___ Spiritual Assessment ___ Family Conference ___ Bereavement ___ Rapid Response ___ Code Blue ___ Other (describe below) Pastoral Care Referral From _x__ Patient ___ Family ___ Nurse ___ Physician ___ Transport Technician ___ Produce Department Manager ___ Other (describe below) Sacrament/Intervention _x__ Active listening ___ Anointing ___ Nondenominational ___ Bereavement ___ Communion ___ Annamarie exploration ___ ___ Life review ___ Prayer ___ Reconciliation ___ Sacrament of Sick _x__ Supportive presence ___ Wedding ___ Other (describe below) Pastoral Comments patient is getting ready to be discharged; family members and a friend are in the room; pt states that he is doing better than before and is hopeful about going home; pt denies any further needs; offer of support to family but they also decline
--- NOTE | 2024-11-30 16:18 | PHA.DC_ITS ---
Pharmacy [facility] has performed discharge medication counseling for this patient. The patient was counseled on the following discharge medications and changes in medications for homegoing review. - Medications counseled on: tizanidine and prednisone The Reason for Use, instructions for use, and potential side effects were reviewed for all new medications. The patients' questions were answered and did not have any further questions at this time. The patient was able to verbally demonstrate an understanding of their discharge medications.
--- NOTE | 2024-11-30 16:36 | CASEMGMT ---
Patient has order for discharge. KAI THOMAS in to discuss needs at discharge. Patient would like outpatient therapy and walker at discharge. Patient prefers [facility] for therapy and [facility] for DME. Patient denies further needs or concerns. KAI THOMAS received script for therapy and walker. KAI THOMAS sent referral to [facility] with request to call patient to schedule appt. KAI THOMAS sent referral to [facility] via [facility] with arrangement for walker to be delivered to room.
== END 2024-11-30 17:21 | disposition home or self-care (01) | DRG 552 ==
LOC: ED 20:06 → PCU 21:19
PROVIDERS: Physician Assistant; Student in an Organized Health Care Education/Training Program; Admitting Provider Family Medicine; Emergency Provider Emergency Medicine; PCP Family Medicine
DX: M48.061 Spinal stenosis, lumbar region without neurogenic claudication (principal); Z68.43 Body mass index [BMI] 50.0-59.9, adult; E11.9 Type 2 diabetes mellitus without complications; E03.9 Hypothyroidism, unspecified; I10 Essential (primary) hypertension; K21.9 Gastro-esophageal reflux disease without esophagitis; J30.9 Allergic rhinitis, unspecified; M54.16 Radiculopathy, lumbar region; Z79.84 Long term (current) use of oral hypoglycemic drugs; Z79.899 Other long term (current) drug therapy; Z79.890 Hormone replacement therapy; E66.813 Obesity, class 3
CPT/HCPCS: 36415; 72131; 72148; 80048; 80053; 82962; 83036; 85025; 94668; 97116; 97161; 97165; 97530; 99285; A4216